=== PATIENT | female | born 1955 | race Caucasian/White ===

== ENCOUNTER → 2016-02-27 | Outpatient (CLI) | payer BC ==
--- NOTE | 2016-02-27 22:20 | MR ---
EXAMINATION TYPE: MR cervical spine wo con DATE OF EXAM: 02/27/2016 3:58 PM COMPARISON: NONE HISTORY: Cervical disc degeneration, Cervicalgia T1 sagittal and coronal, T2 sagittal, and gradient echo axial views of the cervical spine are submitt ed. The cranial cervical junction is preserved. There is no abnormal signal seen within the spinal cord or paraspinal soft tissues. At C2-3 there is moderate degenerative disc disease and left paracentral disc bulging. Bilateral unco vertebral joint hypertrophy seen greater on the left. There is mild effacement of thecal sac and mild left-sided foraminal encroachment. At C3-4 there is severe degenerative disc disease with broad-based left paracentral disc bulging capp ed by spur. Significant uncovertebral joint hypertrophy greater on the left is seen with severe bilat eral foraminal encroachment. Moderate to severe canal stenosis. There is encroachment upon the anteri or margin of the spinal cord and mild anterior compression. At C4-5 there is left paracentral disc bulging and mild uncovertebral joint hypertrophy. Mild facet a rthropathy. Mild to moderate left-sided foraminal encroachment. At C5-6 there is facet arthropathy and bilateral uncovertebral hypertrophy. No canal stenosis. Mild t o moderate bilateral foraminal encroachment. Facet arthropathy noted. At C6-7 there is severe degenerative disc disease with broad-based right paracentral disc protrusion resulting in mass effect and anterior compression of the spinal cord and significant canal stenosis. Severe right-sided foraminal encroachment. At C7-T1 there is no canal stenosis. No foraminal encroachment. No disc herniation. Mild degenerative disc disease. Sagittal disc bulging at T1-T2 and T2-T3 not included by axial imaging. IMPRESSION: 1. Severe degenerative disc disease C3-C4 and C6-C7 with broad-based disc protrusions as discussed a gavi resulting in severe canal stenosis and anterior mild compression of the spinal cord. 2. Significant foraminal encroachment at multiple levels as discussed above. Most marked findings are seen at C3-C4 greater on the left and C6-C7 on the right. EXAMINATION TYPE: MR lumbar spine wo con DATE OF EXAM: 02/27/2016 3:58 PM COMPARISON: NONE HISTORY: Cervical disc degeneration, Cervicalgia TECHNIQUE: T1 and T2 axial and sagittal images of the lumbar spine are submitted. FINDINGS: There is no abnormal signal seen within the visualized spinal cord or paraspinal soft tissu es. At T11-T12 there are severe degenerative disc disease and a sagittal disc bulge. Axial images do not include this level. T12-L1 there is no disc herniation or canal stenosis. There is bilateral facet arthropathy but no for aminal encroachment. At L1-2 there is mild to moderate degenerative disc disease with annular tear and left paracentral di sc focal broad-based protrusion. Mild anterior indentation of the thecal sac. There is facet arthropa thy. Neural foramina remain patent bilaterally At L2-3 there is mild to moderate degenerative disc disease. There is a Schmorl's node involving the superior endplate of L3. There is a broad-based right paracentral and lateral disc protrusion with mi ld right-sided foraminal encroachment. There is mild effacement of thecal sac anterolaterally on the right. Mild canal stenosis. At L3-4 there is facet arthropathy and mild degenerative disc disease. There is no disc herniation, c anal stenosis, or foraminal encroachment. At L4-5 there is marked facet arthropathy. Broad-based central disc bulging results in mild effacemen t of thecal sac. There is mild bilateral foraminal encroachment greater on the right. Borderline to m ild canal stenosis. At L5-S1 there is severe degenerative disc disease with discogenic marrow changes. There is marked fa cet arthropathy. There is a small focal central disc protrusion with mild effacement of the thecal sa c. Hypertrophic changes are seen posteriorly resulting in mild to moderate bilateral foraminal encroa chment. IMPRESSION: 1. Left paracentral disc protrusion with annular tear L1-L2 and mild effacement of thecal sac. 2. Broad-based right paracentral and lateral disc protrusion L2-L3 with effacement of thecal sac, mil d right foraminal encroachment and mild canal stenosis. 3. Multilevel degenerative disc disease and facet arthropathy with foraminal encroachment to moderate degree at L5-S1 secondary to hypertrophic changes and disc bulging. Small focal central disc protrus ion L5-S1 capped by spur with mild effacement of thecal sac. 4. The sagittal disc bulging T11-T12 with severe degenerative disc disease. No spinal cord contact. T his level was not included on axial images of the lumbar spine.
== END | disposition home or self-care (01) ==
LOC: RADMRIMAIN 14:48
PROVIDERS: ATTEND Orthopaedic Surgery Orthopaedic Surgery of the Spine
DX: M48.06 Spinal stenosis, lumbar region (principal); M99.74 Connective tissue and disc stenosis of intervertebral foramina of sacral region; M51.27 Other intervertebral disc displacement, lumbosacral region; M51.36 Other intervertebral disc degeneration, lumbar region; M46.86 Other specified inflammatory spondylopathies, lumbar region; M48.02 Spinal stenosis, cervical region; M99.71 Connective tissue and disc stenosis of intervertebral foramina of cervical region; M50.20 Other cervical disc displacement, unspecified cervical region; M50.31 Other cervical disc degeneration, high cervical region
CPT/HCPCS: 72141; 72148

== ENCOUNTER → 2016-10-05 | Outpatient (CLI) | payer BC ==
--- NOTE | 2016-10-05 15:07 | US ---
EXAMINATION TYPE: US carotid duplex BILAT DATE OF EXAM: 10/05/2016 COMPARISON: NONE CLINICAL HISTORY: A88.1 vertigo R07.89 chest pressure. EXAM MEASUREMENTS: RIGHT: Peak Systolic Velocity (PSV) cm/sec ----- Right CCA: 66.7 ----- Right ICA: 72.5 ----- Right ECA: 97.3 ICA/CCA ratio: 1.1 RIGHT: End Diastole cm/sec ----- Right CCA: 15.8 ----- Right ICA: 23.1 ----- Right ECA: 8.6 LEFT: Peak Systolic Velocity (PSV) cm/sec ----- Left CCA: 58.1 ----- Left ICA: 69.1 ----- Left ECA: 121.0 ICA/CCA ratio: 1.2 LEFT: End Diastole cm/sec ----- Left CCA: 14.4 ----- Left ICA: 27.4 ----- Left ECA: 14.4 VERTEBRALS (direction of flow): Right Vertebral: Antegrade Left Vertebral: Antegrade Mild amount of plaque visualized bilaterally. No elevated velocities. No significant stenosis. IMPRESSION: Minimal amount of silver scale plaquing without hemodynamically significant stenosis of ei ther carotid system.
--- NOTE | 2016-10-06 11:17 | ECHOF ---
Referral Reason:A88.1 vertigo R07.89 chest pressure MEASUREMENTS -------- HEIGHT: 162.6 cm WEIGHT: 101.2 kg BP: 142/67 IVSd: 1.3 cm (0.6 - 1.1) LVIDd: 4.7 cm (3.9 - 5.3) LVPWd: 1.5 cm (0.6 - 1.1) EDV(Teich): 104 ml IVSs: 1.9 cm LVIDs: 2.9 cm LVPWs: 1.7 cm %IVS Thck: 42 % ESV(Teich): 32 ml EF(Teich): 69 % %FS: 39 % SV(Teich): 72 ml LALs A4C: 4.4 cm LAAs A4C: 12.4 cm LAESV A-L A4C: 30 ml LAESV MOD A4C: 27 ml LALs A2C: 3.0 cm LAAs A2C: 8.2 cm LAESV A-L A2C: 19 ml LAESV MOD A2C: 17 ml LAESV(A-L): 29 ml LAESV Index (A-L): 14.09 ml/m Ao Diam: 3.3 cm (2.0 - 3.7) AV Cusp: 1.8 cm (1.5 - 2.6) LA Diam: 3.7 cm (2.7 - 3.8) MV EXCURSION: 17.332 mm (> 18.000) MV EF SLOPE: 89 mm/s (70 - 150) EPSS: 0.9 cm MV E Ralph: 0.53 m/s MV DecT: 245 ms MV Dec [place]: 2.2 m/s MV A Ralph: 0.76 m/s MV E/A Ratio: 0.70 MV PHT: 71 ms E/E': 10.30 E': 0.05 m/s AV Vmax: 1.03 m/s AV maxP.27 mmHg TR Vmax: 2.44 m/s TR maxP.87 mmHg RAP: 5.00 mmHg RVSP: 28.87 mmHg FINDINGS -------- Sinus rhythm. This was a technically difficult study with suboptimal views. There is mild concentric left ventricular hypertrophy. Overall left ventricular systolic function is normal with, an EF between 60 - 65 %. The RV was not well visualized. Normal LA size by volume 22+/-6 ml/m2. The right atrium was not well visualized. 1.5mg of Definity was utilized for enhancement of images Aortic valve is trileaflet and is mildly thickened. There is no evidence of aortic regurgitation. There is no evidence of aortic stenosis. The mitral valve leaflets are mildly thickened. There is trace mitral regurgitation. Trace tricuspid regurgitation present. There is no evidence of pulmonary hypertension. The right ventricular systolic pressure, as measured by Doppler, is 28.87mmHg. The pulmonic valve was not well visualized. The aortic root size is normal. Normal inferior vena cava with normal inspiratory collapse consistent with estimated right atrial pressure of 5 mmHg. The pericardium is normal. There is no pericardial effusion. CONCLUSIONS -------- 1. Sinus rhythm. 2. The mitral valve leaflets are mildly thickened. 3. There is trace mitral regurgitation. 4. Trace tricuspid regurgitation present. 5. There is no evidence of pulmonary hypertension. 6. The right ventricular systolic pressure, as measured by Doppler, is 28.87mmHg. 7. The pulmonic valve was not well visualized. 8. The aortic root size is normal. 9. There is no pericardial effusion. 10. This was a technically difficult study with suboptimal views. 11. There is mild concentric left ventricular hypertrophy. 12. Overall left ventricular systolic function is normal with, an EF between 60 - 65 %. 13. The RV was not well visualized. 14. Normal LA size by volume 22+/-6 ml/m2. 15. The right atrium was not well visualized. 16. 1.5mg of Definity was utilized for enhancement of images 17. Aortic valve is trileaflet and is mildly thickened. IRRIGATION ENGINEER: Satinder Harper RDCS
== END | disposition home or self-care (01) ==
LOC: RADECHMAIN 13:47
PROVIDERS: ATTEND Family Medicine
DX: I07.1 Rheumatic tricuspid insufficiency (principal); R07.89 Other chest pain; A88.1 Epidemic vertigo
CPT/HCPCS: 93306; 93880; Q9957

== ENCOUNTER → 2017-03-17 | Outpatient (CLI) | payer BC ==
--- NOTE | 2017-03-17 14:57 | XR ---
EXAMINATION TYPE: XR cervical spine comp DATE OF EXAM: 03/17/2017 COMPARISON: NONE HISTORY: Pain TECHNIQUE: Four views are submitted. FINDINGS: The odontoid is intact. There are no compression deformities. The prevertebral soft tissue structur es are within normal limits. Degenerative disc disease is seen at levels C2-C4 and C6-C7. Multilevel facet arthropathy. Severe foraminal encroachment C3-C4. Could not exclude a degree of retrolisthesis . Foraminal encroachment noted at all levels. IMPRESSION: 1. Bilevel degenerative disc disease with severe changes at C3-C4 and C6-C7 with multilevel facet art hropathy and foraminal encroachment. Spondylosis and retrolisthesis C3-C4 may result in canal stenosi s. Similar finding at C6-C7. Correlate clinically with MRI as warranted.
== END | disposition home or self-care (01) ==
LOC: RADXRMAIN 14:25
PROVIDERS: ATTEND Neurological Surgery
DX: M43.12 Spondylolisthesis, cervical region (principal); M50.31 Other cervical disc degeneration, high cervical region; M47.812 Spondylosis without myelopathy or radiculopathy, cervical region; M46.82 Other specified inflammatory spondylopathies, cervical region
CPT/HCPCS: 72050

== ENCOUNTER → 2017-06-25 | Outpatient (CLI) | payer BC ==
--- NOTE | 2017-06-25 08:05 | MR ---
EXAMINATION TYPE: MR cervical spine wo con DATE OF EXAM: 06/25/2017 COMPARISON: 02/27/2016 HISTORY: 61-year-old female with cervicalgia, cervical radiculopathy, bilateral arm weakness, pain, a nd numbness. TECHNIQUE: Multiplanar, multisequence images of the cervical spine were acquired. Findings: No craniocervical junction abnormality, predental space widening, or prevertebral soft tissue swellin g. Preserved alignment of the cervical spine but with redemonstrated moderate to advanced multilevel deg enerative disc disease with degenerated, desiccated, and narrowed discs. Disc osteophyte complexes ar e present at multiple levels along with a some levels of ligamentum flavum thickening. Facet and uncovertebral joint arthropathy is present throughout. No prevertebral or paravertebral soft tissue abnormality seen. At C2-C3, there is a left paracentral disc osteophyte complex similar prior. Mild facet and uncoverte bral joint degenerative change. Similar mild left neural foraminal stenosis without significant spina l canal stenosis though there is abutment of the ventral cord. At C3-C4, there is broad-based disc osteophyte complex eccentric toward the left with contiguous unco vertebral joint degenerative change as well as facet degenerative change. Ligamentum flavum thickenin g. There is a severe left and moderate to severe right neural foraminal stenosis. The overall degree of spinal canal stenosis appears slightly decreased but still with persistent moderate spinal canal s tenosis. Abutment and flattening of both the dorsal and ventral cord. No myelopathic cord signal goodwin ge. At C4-C5, small posterior disc osteophyte complex. Uncovertebral joint and facet degenerative change. This results in [id number]-[id number] left neural foraminal stenosis without significant spinal canal oswald nosis. At C5-C6, broad-based disc osteophyte complex with uncovertebral joint and facet degenerative change as well as ligamentum flavum thickening. There is similar mild spinal canal stenosis at this level wi thout cord abutment or cord flattening. Moderate right and mild left neuroforaminal stenosis. At C6-7, broad-based discussed effect complex eccentric to the right is redemonstrated with prominent abutment and flattening of the ventral cord. However, dorsal CSF signal remains and a mild spinal ca nal stenosis here may be slightly improved from 02/27/2016. Facet and uncovertebral joint arthropathy. Moderate right and mild left neuroforaminal stenosis. At C7-T1, there is ligamentum flavum thickening with facet degenerative change. Similar mild bilatera l neuroforaminal stenosis. No significant spinal canal stenosis. No myelopathic cord signal change. IMPRESSION: 1. Moderate to advanced multilevel degenerative disc disease is redemonstrated. Additional facet and uncovertebral joint arthropathy and scattered ligamentum flavum thickening. 2. Greatest changes are seen at C3-C4 where there is a moderate spinal canal stenosis though slightly improved from 02/27/2016. There is abutment and flattening of both the dorsal and ventral cord but wi thout myelopathic cord signal change. 3. Additional mild spinal canal stenosis at C6-C7 appears slightly improved as well. Disc osteophyte complex here continues to abut and indent the ventral cord. 4. Variable bilateral neural foraminal stenosis as outlined above, severe on the left and moderate to severe on the right at C3-C4.
== END | disposition home or self-care (01) ==
LOC: RADMRIMAIN 06:51
PROVIDERS: ATTEND Physical Medicine & Rehabilitation
DX: M99.71 Connective tissue and disc stenosis of intervertebral foramina of cervical region (principal); M48.02 Spinal stenosis, cervical region; M50.10 Cervical disc disorder with radiculopathy, unspecified cervical region; M46.92 Unspecified inflammatory spondylopathy, cervical region
CPT/HCPCS: 72141

== ENCOUNTER → 2017-08-03 | Outpatient (CLI) | payer BC ==
--- NOTE | 2017-08-03 14:19 | XR ---
Limited cervical spine HISTORY: Postop cervical fusion 3 views of the cervical spine correlated to previous exam dated 03/17/2017 Patient is status post anterior cervical fusion and discectomy at C3-C7. Intervertebral spacing block s are present. There is near anatomic alignment. Airway is patent. Mild prominence of the prevertebra l soft tissues is noted and may be postsurgical. Loss of disc height again noted at C2-3. Minimal ret rolisthesis C2-3, C3-4 is similar to prior exam. Multilevel facet arthropathy is noted. Odontoid view is limited. IMPRESSION: Neurosurgical follow-up as described.
== END | disposition home or self-care (01) ==
LOC: RADXRMAIN 12:56
PROVIDERS: ATTEND Neurological Surgery
DX: Z09 Encounter for follow-up examination after completed treatment for conditions other than malignant neoplasm (principal); Z98.1 Arthrodesis status; Z88.1 Allergy status to other antibiotic agents; Z88.5 Allergy status to narcotic agent
CPT/HCPCS: 72040

== ENCOUNTER → 2017-10-04 | Outpatient (CLI) | payer BC ==
--- NOTE | 2017-10-04 16:54 | XR ---
Cervical spine HISTORY: Fusion cervical spine, arthrodesis 5 views of the cervical spine and 6 images correlated to prior exam 08/03/2017 Images of the right neural foramina are suboptimal. Postop changes are again noted and stable. Odonto id view is suboptimal. No significant foraminal encroachment noted on the left. IMPRESSION: Stable postop changes.
== END | disposition home or self-care (01) ==
LOC: RADXRMAIN 13:16
PROVIDERS: ATTEND Family Medicine
DX: Z47.89 Encounter for other orthopedic aftercare (principal); Z98.1 Arthrodesis status
CPT/HCPCS: 72050

== ENCOUNTER → 2018-01-04 | Outpatient (CLI) | payer BC ==
--- NOTE | 2018-01-04 11:36 | CT ---
EXAMINATION TYPE: CT cervical spine wo con DATE OF EXAM: 01/04/2018 COMPARISON: Plain films 10/04/2017 HISTORY: 6 month follow up study post surgery. Athrodesis. CT DLP: 611.[address] of the cervical spine was performed with bone and soft tissue window settings submitted . Coronal and sagittal reconstruction is obtained. C2-3: Moderate degenerative narrowing. Posterior spondylosis. Mild effacement ventral thecal sac. Deg enerative change cervical apophyseal joints resulting in moderate left-sided foraminal encroachment. No central stenosis or xochilt disc herniation. C3-4, C4-5, C5-6, C6-7: Postsurgical changes of fusion with anterior fixation plate and screws in antionette ce. Alignment is anatomic. No evidence for recurrent or residual disease. C7-T1: Within normal limits No evidence for fracture or subluxation. Alignment is anatomic. IMPRESSION: 1. Postsurgical changes of ACDF C3-C7 as discussed above with the anatomic alignment. No evidence for recurrent disease. 2. Degenerative change at C2-3 as noted.
== END | disposition home or self-care (01) ==
LOC: RADCTMAIN 10:50
PROVIDERS: ATTEND Neurological Surgery
DX: Z47.89 Encounter for other orthopedic aftercare (principal); M47.812 Spondylosis without myelopathy or radiculopathy, cervical region; Z98.1 Arthrodesis status
CPT/HCPCS: 72125

== ENCOUNTER → 2018-03-30 | Outpatient (CLI) | payer BC ==
--- NOTE | 2018-03-30 14:06 | XR ---
EXAMINATION TYPE: XR cervical spine comp DATE OF EXAM: 03/30/2018 COMPARISON: 09/27/1717 HISTORY: Postsurgical TECHNIQUE: Four views are submitted. FINDINGS: The odontoid is intact. There are no compression deformities. The prevertebral soft tissue structur es are within normal limits. Postsurgical changes are noted and appear to be stable in alignment. Sanchez ggestion of multilevel foraminal encroachment. Multilevel facet arthropathy noted. IMPRESSION: 1. Stable postsurgical changes. Suspect multilevel foraminal encroachment with multilevel facet arthr opathy..
== END | disposition home or self-care (01) ==
LOC: RADXRMAIN 13:25
PROVIDERS: ATTEND Neurological Surgery
DX: Z47.89 Encounter for other orthopedic aftercare (principal); Z98.1 Arthrodesis status
CPT/HCPCS: 72050

== ENCOUNTER → 2018-04-27 | Outpatient (CLI) | payer BC ==
--- NOTE | 2018-04-27 13:59 | CT ---
EXAMINATION TYPE: CT abdomen pelvis wo con DATE OF EXAM: 04/27/2018 HISTORY: Left side flank pain. CT DLP: 1161.9 mGycm. Automated Exposure Control for Dose Reduction was Utilized. TECHNIQUE: CT scan of the abdomen and pelvis is performed without oral or IV contrast. COMPARISON: NONE FINDINGS: Within the limitations of a non-contrast study, the following observations are made. LUNG BASES: No significant abnormality is appreciated. LIVER/GB: Liver is diffusely low dense consistent with fatty infiltration. PANCREAS: No significant abnormality is seen. SPLEEN: No significant abnormality is seen. ADRENALS: No significant abnormality is seen. KIDNEYS: Single 2 mm calculus identified right kidney mid pole level axial image 63. No left-sided re nal calculi are seen. No hydronephrosis or obstructing ureter calculi are identified bilaterally. Sin gle 3 mm left pelvic phleboliths noted axial image 132 BOWEL: Evaluation bowel slightly suboptimal secondary to lack of enteric contrast. No suspicious smal l or large bowel dilatation is seen. Some diverticula in the sigmoid colon are present. No CT evidenc e for acute diverticulitis. GENITAL ORGANS: Anteverted uterus is identified. Both ovaries identified near axial image 106 and are normal in size. LYMPH NODES: No greater than 1cm abdominal or pelvic lymph nodes are appreciated. OSSEOUS STRUCTURES: Multilevel facet arthropathy in the lower lumbar spine is present. There is mild multilevel spurring in the thoracolumbar spine. There is mild to moderate disc space narrowing with v acuum disc phenomenon at L4-L5 and L5-S1 levels. There is moderate axial joint space loss in both hip s. Dextroconvex scoliosis centered L2 level is present. OTHER: No significant additional abnormality is seen. IMPRESSION: Single 2 mm nonobstructing calculus right kidney. No hydronephrosis or obstructing ureter calculi bilaterally. Sigmoid colonic diverticulosis without CT evidence for acute diverticulitis. No suspicious acute findings seen to account for patient's symptoms of left-sided flank pain.
== END | disposition home or self-care (01) ==
LOC: RADCTMAIN 13:16
PROVIDERS: ATTEND Family Medicine
DX: N20.0 Calculus of kidney (principal); K57.30 Diverticulosis of large intestine without perforation or abscess without bleeding
CPT/HCPCS: 74176

== ENCOUNTER → 2018-05-09 | Outpatient (CLI) | payer BC ==
--- NOTE | 2018-05-09 10:51 | XR ---
EXAMINATION TYPE: XR IVP DATE OF EXAM: 05/09/2018 COMPARISON: CT abdomen pelvis 04/27/2017 HISTORY: Urinary calculus, left flank pain TECHNIQUE: Following intravenous administration of 100 cc Isovue-370, 8 images are obtained. The preliminary film of the abdomen reveals no significant abnormality. No definite nephrolithiasis i s seen. There is mild spinal curvature. Phlebolith present in the left hemipelvis. Following intravenous administration of contrast material, sequential films of the abdomen were obtai jasen. There is prompt and symmetrical excretion of the contrast by both kidneys which demonstrate nor mal size and configuration. The collecting systems and visualized portions of the ureters reveal no abnormality, mild blunting of the calyces on the right thought likely due to applied extrinsic compre ssion. Ureters show normal course and caliber. Slight impression along the proximal left ureter does not persist and is thought to possibly due to overlying vascular impression. There is no mass or obs truction visualized. There is gradual accumulation of contrast material in the urinary bladder showi ng no gross abnormality, there is not distention of the bladder. The post-voiding film shows minimal residual contrast in the collecting systems and urinary bladder. IMPRESSION: Essentially normal IVP , no significant finding is seen to account for patient's clinical symptoms
== END | disposition home or self-care (01) ==
LOC: RADFLMAIN 08:42
PROVIDERS: ATTEND Urology
DX: R10.9 Unspecified abdominal pain (principal); Z88.5 Allergy status to narcotic agent
CPT/HCPCS: 74400; Q9967

== ENCOUNTER → 2018-06-29 | Outpatient (CLI) | payer BC ==
--- NOTE | 2018-06-29 13:55 | XR ---
EXAMINATION TYPE: XR cervical spine comp DATE OF EXAM: 06/29/2018 COMPARISON: 03/30/2018 HISTORY: Postoperative fusion TECHNIQUE: Four views are submitted. FINDINGS: The odontoid is intact. There are no compression deformities. The prevertebral soft tissue structur es are within normal limits. Postsurgical changes stable appearance. There remains a slight retrolis thesis of C3 relative to C4 which is stable relative to the prior exam. Multilevel facet arthropathy noted. Diffuse osteopenia noted. There is foraminal encroachment bilaterally at C3-4 and C6-C7. IMPRESSION: 1. Postsurgical changes with multilevel foraminal encroachment. Question posterior spondylosis or a r etrolisthesis of C3 on C4 which appears stable relative to the prior exam.
== END | disposition home or self-care (01) ==
LOC: RADXRMAIN 13:26
PROVIDERS: ATTEND Neurological Surgery
DX: Z47.89 Encounter for other orthopedic aftercare (principal); Z98.1 Arthrodesis status
CPT/HCPCS: 72050

== ENCOUNTER → 2018-07-15 | Outpatient (CLI) | payer BC ==
--- NOTE | 2018-07-15 08:28 | FL ---
EXAMINATION TYPE: FL barium swallow DATE OF EXAM: 07/15/2018 CLINICAL HISTORY: Dysphagia TECHNIQUE: A double contrast esophagram is performed utilizing air and barium. A total of 1 minut e 33 seconds of fluoroscopic time was utilized during procedure. 24 fluoroscopic images were saved COMPARISON: None FINDINGS: The esophagus shows normal motility and emptying into the stomach. On image 18/24 there is evidence of a cricopharyngeal bar. The anterior cervical fusion device does not play significant mass effect on the posterior esophagus. There are small thoracic osteophytes that create minimal impressi on on the posterior esophagus. Small hiatal hernia is seen. No stricture is identified. Mild degree g astroesophageal reflux was seen during real time performance of this study. IMPRESSION: 1. Evidence of a cricopharyngeal bar. 2. Cervical fusion device is present although this abuts the esophagus this does not create significa nt mass effect on the esophagus. 3. Small thoracic osteophytes creating minimal impression on the posterior esophagus.
--- NOTE | 2018-07-15 10:30 | CT ---
EXAMINATION TYPE: CT soft tissue neck w con DATE OF EXAM: 07/15/2018 7:48 AM COMPARISON: Cervical spine 06/29/2018 HISTORY: Dysphagia, Hoarseness, difficulty swallowing CT DLP: 664.3 mGycm Automated exposure control for dose reduction was used. CONTRAST: CT scan of the neck is performed following with IV Contrast, patient injected with 100 mL of Isovue 3 00. Axial images are obtained, coronal and sagittal reformatted images are reviewed. FINDINGS: Patient is status post anterior cervical fusion and discectomy at C3-C7, there are interver tebral spacing blocks. Artifact is present. There are facet arthropathy changes, multilevel foraminal encroachment. 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 Airway: No gross abnormality seen. Parotid/submandibular glands: No gross abnormality seen. Carotid/Vascular Structures: Patent, no stenosis internal carotid artery bilaterally Osseous Structures: Postop changes, degenerative disc disease. Other: No evident adenopathy. Lung apices are unremarkable. IMPRESSION: Postoperative changes.
== END | disposition home or self-care (01) ==
LOC: RADCTMAIN 06:55
PROVIDERS: ATTEND Otolaryngology
DX: M25.78 Osteophyte, vertebrae (principal); R93.3 Abnormal findings on diagnostic imaging of other parts of digestive tract; Z98.1 Arthrodesis status
CPT/HCPCS: 74220; 70491; Q9967

== ENCOUNTER → 2018-09-22 | Outpatient (CLI) | payer BC ==
[~2018-09-22] MED LIST: REGADENOSON 0.4 MG/5 ML SYRINGE IV ONE
--- NOTE | 2018-09-22 11:45 | NM ---
EXAMINATION TYPE: NM stress lexiscan cardiolite DATE OF EXAM: 09/22/2018 COMPARISON: NONE HISTORY: Chest pain TECHNIQUE: After the intravenous administration of 10.8 mCi Tc 99m Sestamibi - Cardiolite resting SP ECT images acquired 45 minutes post injection. The patient received 0.4mg Lexiscan, 29.0 mCi Tc 99m Sestamibi - Stress images obtained [address] injection FINDINGS: Review of stress and rest SPECT images demonstrates reduced uptake and stress images within the anter ior wall. Gated analysis shows normal wall motion with an estimated left ventricular ejection fracti on of 64 %. IMPRESSION: 1. There is reduced uptake stress images within the anterior wall relative to rest images which may b e artifactual rather than representing stress-induced reversible ischemia. Correlate clinically.
--- NOTE | 2018-09-22 12:10 | EST ---
EXERCISE STRESS AGE: 63 SEX: F HT: 5'4" WT: 223 PROTOCOL: Lexiscan Cardiolite Stress Test HEART RATE REST: 60 BLOOD PRESSURE REST: 139/75 MAXIMUM HEART RATE ACHIEVED: 110 MAXIMUM BLOOD PRESSURE: 155/67 INDICATIONS: Chest pain. CLINICAL INFORMATION: Baseline heart rate 60 beats per minute. Baseline blood pressure 139/75 mmHg. Baseline 12-lead ECG shows normal sinus rhythm with normal cardiac intervals. Patient received Lexiscan infusion per protocol. There was no definite evidence for ischemia. No arrhythmias were noted. Nuclear portion of the stress test will be reported separately. MMODL / IJN: [id number] /
== END | disposition home or self-care (01) ==
LOC: RADNMMAIN 08:01
PROVIDERS: ATTEND Family Medicine
DX: R07.9 Chest pain, unspecified (principal)
CPT/HCPCS: 78452; 93017

== ENCOUNTER → 2019-01-03 | Outpatient (CLI) | payer BC ==
--- NOTE | 2019-01-03 16:15 | XR ---
Cervical spine HISTORY: Arthrodesis, pain 5 views of the cervical spine correlated to prior cervical spine dated 06/29/2018 Postop changes show a stable appearance. Foraminal encroachment is stable at C3-4 bilaterally, right side C6-7. Spondylosis and disc height loss at C2-3 is again noted. Intervertebral spacing blocks are again noted at C3-4, C4-5, C5-6 and C6-7, patient is status post anterior cervical fusion and discec evelin. Multilevel facet arthropathy changes present. Alignment is unchanged. IMPRESSION: Stable postoperative findings. Degenerative disc disease, facet arthropathy, foraminal en croachment.
== END | disposition home or self-care (01) ==
LOC: RADXRMAIN 13:20
PROVIDERS: ATTEND Neurological Surgery
DX: Z47.89 Encounter for other orthopedic aftercare (principal); M50.30 Other cervical disc degeneration, unspecified cervical region; M46.92 Unspecified inflammatory spondylopathy, cervical region; Z98.1 Arthrodesis status
CPT/HCPCS: 72050

== ENCOUNTER → 2019-01-07 | Outpatient (CLI) | payer BC ==
--- NOTE | 2019-01-07 11:35 | MR ---
EXAMINATION TYPE: MR brain wo/w con DATE OF EXAM: 01/07/2019 COMPARISON: Outside brain MRI April 15, 2017 HISTORY: Headache TECHNIQUE: Multiplanar, multisequence images of the brain and brainstem is performed without and with IV contras t, utilizing 10 mL intravenous Gadavist . FINDINGS: Diffusion weighted images demonstrate no evidence of a recent infarct or other diffusion ab normality. There is no worrisome extra-axial fluid collection. Mild ventricular and sulcal prominenc e is redemonstrated. A few scattered small foci of T2 intensity throughout the white matter again see n with confluent appearance bilateral frontal horns redemonstrated. No significant change from prior outside MRI. Midline structures demonstrate normal morphology. The craniocervical junction appears within normal limits. Post contrast images demonstrate no abnormal enhancement. The dural venous sinuses appear pa tent. Stable tiny mucous retention cyst or polyp left maxillary sinus axial image 6. Remainder parana chrsitian sinuses remain clear. The globes are intact. IMPRESSION: Stable mild diffuse age-related cerebral atrophy and chronic small vessel ischemic change s. No significant change from prior MRI.
== END | disposition home or self-care (01) ==
LOC: RADMRIMAIN 10:13
PROVIDERS: ATTEND Family Medicine
DX: G31.1 Senile degeneration of brain, not elsewhere classified (principal); I67.82 Cerebral ischemia
CPT/HCPCS: 70553

== ENCOUNTER 2020-01-03 10:02 | Observation (INO) | payer BC ==
[2020-01-03] MEDS ORDERED: SODIUM CHLORIDE 0.9% 1,000 ML IV STA ×2 (10:30)
[2020-01-03] MEDS ORDERED: ASPIRIN 81 MG PO STA (10:30)
[2020-01-03] MEDS ORDERED: LABETALOL SYRINGE 5 MG/ML IVP STA (10:31)
--- NOTE | 2020-01-03 10:38 | ED ---
General Adult HPI - General Source: patient, RN notes reviewed, old records reviewed Mode of arrival: ambulatory Limitations: no limitations <Radha Kern - Last Filed: 01/03/20 14:06> <Kristi Ferrer - Last Filed: 01/11/20 09:04> - General Chief complaint: Recheck/Abnormal Lab/Rx Stated complaint: High BP Time Seen by Provider: 01/03/20 10:18 - History of Present Illness Initial comments: This patient's a 64-year-old female presenting to the emergency department today with concerns for headache and high blood pressure. She reports her blood pressures at home or 220/100. She called her primary care doctor who told her come to the ER. Patient states that she also noted she had some chest pain and some jaw discomfort today. She reports that she's had a and stress test done over a year ago. She denies any known history of coronary disease or heart problems. Patient states that she's been taking the metoprolol and losartan. She states that she is having frequent migraines as well and she was related to her elevated blood pressure. She denies any nausea or vomiting or fevers or chills or shortness of breath. (Radha Kern) - Related Data Home Medications Medication Instructions Recorded Confirmed Aspirin 162 mg PO DAILY@1800 12/12/14 01/03/20 Montelukast [Singulair] 10 mg PO DAILY PRN 12/12/14 01/03/20 raNITIdine HCL [Ranitidine HCl] 300 mg PO BID PRN 12/12/14 01/03/20 Albuterol Sulfate [Ventolin HFA] 1 puff INHALATION RT-Q6H PRN 01/03/20 01/03/20 Ascorbic Acid [Vitamin C] 1,000 mg PO DAILY@0400 01/03/20 01/03/20 Cats Claw Bark 500 mg PO DAILY 01/03/20 01/03/20 Cetirizine HCl [Zyrtec] 10 mg PO DAILY@1800 01/03/20 01/03/20 Echinacea 500 mg PO DAILY 01/03/20 01/03/20 Ergocalciferol [Vitamin D2 50,000 unit PO MO 01/03/20 01/03/20 (DRISDOL)] Etodolac 500 mg PO TID PRN 01/03/20 01/03/20 Garlic 2 tab PO DAILY@0900 01/03/20 01/03/20 Ipratropium [place] 0.06%Nasal 1 spray EA NOSTRIL HS 01/03/20 01/03/20 [Atrovent Nasal 0.06%] Losartan Potassium [Cozaar] 100 mg PO DAILY PRN 01/03/20 01/03/20 Lysine [l-Lysine] 1,000 mg PO DAILY 01/03/20 01/03/20 Methylphenidate HCl [Concerta] 54 mg PO DAILY 01/03/20 01/03/20 Multivit-Min/FA/Lycopen/Lutein 1 tab PO DAILY@0400 01/03/20 01/03/20 [Centrum Silver Tablet] Nizatidine [Axid] 300 mg PO DAILY PRN 01/03/20 01/03/20 RABEprazole SODIUM [Aciphex] 20 mg PO BID PRN 01/03/20 01/03/20 Ubidecarenone [Co Q-10] 400 mg PO DAILY@0400 01/03/20 01/03/20 Previous Rx's Medication Instructions Recorded Metoprolol Tartrate [Lopressor] 50 mg PO BID #60 tab 01/04/20 amLODIPine [Norvasc] 10 mg PO DAILY #30 tab 01/04/20 hydroCHLOROthiazide [Hydrodiuril] 25 mg PO DAILY #30 tab 01/04/20 Allergies Allergy/AdvReac Type Severity Reaction Status Date / Time codeine Allergy Rash/Hives/ Verified 01/03/20 12:51 ITCHING neomycin Allergy Swelling Verified 01/03/20 12:51 Review of Systems ROS Other: All systems not noted in ROS Statement are negative. <Radha Kern - Last Filed: 01/03/20 14:06> ROS Other: All systems not noted in ROS Statement are negative. <Kristi Ferrer - Last Filed: 01/11/20 09:04> ROS Statement: Those systems with pertinent positive or pertinent negative responses have been documented in the HPI. Past Medical History Past Medical History: Asthma, Chest Pain / Angina, GERD/Reflux, Hypertension, Sleep Apnea/CPAP/BIPAP Additional Past Medical History / Comment(s): ALLERGIES, CURRENT SCRATCHES FROM PUPPY History of Any Multi-Drug Resistant Organisms: None Reported Past Surgical History: Orthopedic Surgery Additional Past Surgical History / Comment(s): LEFT ANKLE ORIF, LEFT KNEE SX, BENIGN BREAST BX, spinal fusion, Additional Past Anesthesia/Blood Transfusion Reaction / Comment(s): PATIENT STATES PERSONALITY CHANGES POST OP Past Psychological History: ADD/ADHD Past Alcohol Use History: Rare Past Drug Use History: None Reported <ConchaRadha - Last Filed: 01/03/20 14:06> General Exam Limitations: no limitations General appearance: alert Head exam: Present: atraumatic, normocephalic, normal inspection Eye exam: Present: normal appearance, PERRL, EOMI. Absent: scleral icterus, conjunctival injection, periorbital swelling ENT exam: Present: normal exam, mucous membranes moist Neck exam: Present: normal inspection. Absent: tenderness, meningismus, lymphadenopathy Respiratory exam: Present: normal lung sounds bilaterally. Absent: respiratory distress, wheezes, rales, rhonchi, stridor Cardiovascular Exam: Present: regular rate, normal rhythm, normal heart sounds. Absent: systolic murmur, diastolic murmur, rubs, gallop, clicks GI/Abdominal exam: Present: soft, normal bowel sounds. Absent: distended, tenderness, guarding, rebound, rigid Extremities exam: Present: normal inspection Back exam: Present: normal inspection Neurological exam: Present: alert, oriented X3, CN II-XII intact Psychiatric exam: Present: normal affect, normal mood Skin exam: Present: warm, dry, intact, normal color. Absent: rash <ConchaRadha - Last Filed: 01/03/20 14:06> - General Exam Comments Initial Comments: 64-year-old female. Alert and oriented 3. No significant distress. (Radha Kern) Course Vital Signs 01/03/20 01/03/20 01/03/20 10:05 10:30 11:05 Temperature 98.1 F Pulse Rate 82 Respiratory 18 Rate Blood Pressure 195/95 162/85 149/74 O2 Sat by Pulse 99 Oximetry 01/03/20 01/03/20 01/03/20 11:30 12:47 13:43 Temperature Pulse Rate 67 66 72 Respiratory 18 16 17 Rate Blood Pressure 127/69 162/87 158/80 O2 Sat by Pulse 99 99 Oximetry 01/03/20 16:45 Temperature Pulse Rate 73 Respiratory 18 Rate Blood Pressure 133/76 O2 Sat by Pulse 98 Oximetry EKG Findings - EKG Comments: EKG Findings:: EKG performed that 1042 normal sinus rhythm normal EKG. Ventricular rate of 64 bpm. : 60 ms. QS duration is 76 no seconds. QT QTc is 46/418 ms. <Radha Kern - Last Filed: 01/03/20 14:06> Medical Decision Making - Lab Data Result diagrams: 01/03/20 11:11 01/03/20 11:11 - Radiology Data Radiology results: report reviewed <Radha Kern - Last Filed: 01/03/20 14:06> - Lab Data Result diagrams: 01/04/20 07:49 01/04/20 07:49 <Kristi Ferrer - Last Filed: 01/11/20 09:04> - Medical Decision Making 64-year-old female presents to the emergency department today for concerning hypertensive emergency complaining of a headache and elevated blood pressures 200/100 home. She reports even high for the past week and longer. She's been taking metoprolol and losartan. She will her PCP told her to come to the ER. At this time Patient has no acute neurological deficits. Her initial blood pressure is 195/90. Patient was given 10 mg of labetalol. She also mentioned that she was having some chest discomfort. EKG and troponin were negative. Patient's last flexor can stress test was done over a year ago. I discussed to admit the Patient at this time with Dr. Devi. Discussed the case with Dr. Berman. Roy the Patient for hypertensive emergency and chest pain. (Radha Kern) I was available for consultation in the emergency department. The history and physical exam were done by the midlevel provider. I was consulted for this patients care. I reviewed the case with the midlevel provider and based on their presentation of the patient, I agree with the assessment, medical decision making and plan of care as documented. Chart was dictated using [employer] dictation software. Attempts were made to correct any dictation errors however some typographical errors may persist. Patient seen during the Covid-19 pandemic. (Kristi Ferrer) - Lab Data Lab Results 01/03/20 01/03/20 01/03/20 Range/Units 11:11 11:11 11:11 WBC 5.2 (3.8-10.6) k/uL RBC 4.42 (3.80-5.40) m/uL Hgb 13.5 (11.4-16.0) gm/dL Hct 39.8 (34.0-46.0) % MCV 90.0 (80.0-100.0) fL MCH 30.6 (25.0-35.0) pg MCHC 34.0 (31.0-37.0) g/dL RDW 13.1 (11.5-15.5) % Plt Count 288 (150-450) k/uL MPV 6.8 Neutrophils % 56 % Lymphocytes % 31 % Monocytes % 7 % Eosinophils % 3 % Basophils % 1 % Neutrophils # 2.9 (1.3-7.7) k/uL Lymphocytes # 1.6 (1.0-4.8) k/uL Monocytes # 0.4 (0-1.0) k/uL Eosinophils # 0.1 (0-0.7) k/uL Basophils # 0.1 (0-0.2) k/uL PT 10.0 (9.0-12.0) sec INR 1.0 (<1.2) APTT 24.2 (22.0-30.0) sec Sodium 139 (137-145) mmol/L Potassium 4.1 (3.5-5.1) mmol/L Chloride 108 H (98-107) mmol/L Carbon Dioxide 22 (22-30) mmol/L Anion Gap 9 mmol/L BUN 17 (7-17) mg/dL Creatinine 0.71 (0.52-1.04) mg/dL Est GFR (CKD-EPI)AfAm >90 (>60 ml/min/1.73 sqM) Est GFR (CKD-EPI)NonAf >90 (>60 ml/min/1.73 sqM) Glucose 96 (74-99) mg/dL Calcium 9.4 (8.4-10.2) mg/dL Magnesium 1.9 (1.6-2.3) mg/dL Total Bilirubin 0.6 (0.2-1.3) mg/dL AST 25 (14-36) U/L ALT 16 (4-34) U/L Alkaline Phosphatase 70 (38-126) U/L Troponin I (0.000-0.034) ng/mL NT-Pro-B Natriuret Pep pg/mL Total Protein 6.8 (6.3-8.2) g/dL Albumin 3.9 (3.5-5.0) g/dL 01/03/20 01/03/20 Range/Units 11:11 11:11 WBC (3.8-10.6) k/uL RBC (3.80-5.40) m/uL Hgb (11.4-16.0) gm/dL Hct (34.0-46.0) % MCV (80.0-100.0) fL MCH (25.0-35.0) pg MCHC (31.0-37.0) g/dL RDW (11.5-15.5) % Plt Count (150-450) k/uL MPV Neutrophils % % Lymphocytes % % Monocytes % % Eosinophils % % Basophils % % Neutrophils # (1.3-7.7) k/uL Lymphocytes # (1.0-4.8) k/uL Monocytes # (0-1.0) k/uL Eosinophils # (0-0.7) k/uL Basophils # (0-0.2) k/uL PT (9.0-12.0) sec INR (<1.2) APTT (22.0-30.0) sec Sodium (137-145) mmol/L Potassium (3.5-5.1) mmol/L Chloride (98-107) mmol/L Carbon Dioxide (22-30) mmol/L Anion Gap mmol/L BUN (7-17) mg/dL Creatinine (0.52-1.04) mg/dL Est GFR (CKD-EPI)AfAm (>60 ml/min/1.73 sqM) Est GFR (CKD-EPI)NonAf (>60 ml/min/1.73 sqM) Glucose (74-99) mg/dL Calcium (8.4-10.2) mg/dL Magnesium (1.6-2.3) mg/dL Total Bilirubin (0.2-1.3) mg/dL AST (14-36) U/L ALT (4-34) U/L Alkaline Phosphatase (38-126) U/L Troponin I <0.012 (0.000-0.034) ng/mL NT-Pro-B Natriuret Pep 107 pg/mL Total Protein (6.3-8.2) g/dL Albumin (3.5-5.0) g/dL - Radiology Data No evidence for cardiopulmonary disease on chest x-ray. ET tube the brain shows no acute hemorrhage and midline shift. Mild diffuse cervical atrophy and chronic small vessel ischemic change redemonstrated. No aneurysmal change of the [place]. (Radha Kern) Disposition Is patient prescribed a controlled substance at d/c from ED?: No Time of Disposition: 14:09 <Radha Kern - Last Filed: 01/03/20 14:06> <Kristi Ferrer - Last Filed: 01/11/20 09:04> Clinical Impression: Chest pain, Hypertensive urgency, Headache Disposition: ADMITTED IP TO THIS HOSP Condition: Stable
[2020-01-03 11:23] LABS: Basophils # (A) 0.1 k/uL (0-0.2); Basophils % (A) 1 %; Eosinophils # (A) 0.1 k/uL (0-0.7); Eosinophils % (A) 3 %; HCT 39.8 % (34.0-46.0); HGB 13.5 gm/dL (11.4-16.0); Lymphocytes # (A) 1.6 k/uL (1.0-4.8); Lymphocytes % (A) 31 %; MCH 30.6 pg (25.0-35.0); Mean Platelet Volume 6.8; Monocytes # (A) 0.4 k/uL (0-1.0); Monocytes % (A) 7 %; Neutrophils # (A) 2.9 k/uL (1.3-7.7); Neutrophils % (A) 56 %; Platelet Count 288 k/uL (150-450); RBC 4.42 m/uL (3.80-5.40); RDW 13.1 % (11.5-15.5); WBC 5.2 k/uL (3.8-10.6)
[2020-01-03 11:35] LABS: ALT 16 U/L (4-34); AST 25 U/L (14-36); African American GFR (CKD) >90 (>60 ml/min/1.73 sqM); Albumin 3.9 g/dL (3.5-5.0); Alkaline Phosphatase 70 U/L (38-126); Anion Gap 9 mmol/L; Blood Urea Nitrogen 17 mg/dL (7-17); Calcium 9.4 mg/dL (8.4-10.2); Carbon Dioxide 22 mmol/L (22-30); Chloride 108 mmol/L (98-107); Glucose 96 mg/dL (74-99); Magnesium 1.9 mg/dL (1.6-2.3); Non-African American GFR(CKD) >90 (>60 ml/min/1.73 sqM); Potassium 4.1 mmol/L (3.5-5.1); Sodium 139 mmol/L (137-145); Total Bilirubin 0.6 mg/dL (0.2-1.3); Total Protein 6.8 g/dL (6.3-8.2)
[2020-01-03 11:36] LABS: Partial Thromboplastin Time 24.2 sec (22.0-30.0)
--- NOTE | 2020-01-03 11:36 | XR ---
EXAMINATION TYPE: XR chest 2V DATE OF EXAM: 01/03/2020 COMPARISON: 01/03/2020 HISTORY: Shortness of breath TECHNIQUE: Frontal and lateral views of the chest are obtained. FINDINGS: Scattered senescent parenchymal changes noted. Hyperinflation compatible with COPD. No evidence for infiltrate. No evidence for atelectasis. Heart size is stable. Mediastinal structures are stable and grossly unremarkable. No evidence for hilar prominence. Degenerative changes dorsal spine. IMPRESSION: 1. No evidence for acute pulmonary disease.
[2020-01-03] MEDS ORDERED: KETOROLAC 15 MG/ML 1 ML VIAL IVP STA (11:38)
--- NOTE | 2020-01-03 13:31 | CT ---
EXAMINATION TYPE: CT brain wo con DATE OF EXAM: 01/03/2020 HISTORY: headache, hypertension CT DLP: 1186 mGycm. Automated Exposure Control for Dose Reduction was Utilized. TECHNIQUE: CT scan of the head is performed without contrast. COMPARISON: MRI brain dated 01/07/2019. FINDINGS: There is no acute intracranial hemorrhage or midline shift identified. There is diffuse v entricular and sulcal prominence consistent with diffuse age-related cerebral atrophy. There is low- attenuation in the periventricular white matter consistent with chronic small vessel ischemic change. The globes are intact and the visualized sinuses are clear. IMPRESSION: No acute intracranial hemorrhage or midline shift. There is mild diffuse cerebral atrop hy and chronic small vessel ischemic change redemonstrated.
--- NOTE | 2020-01-03 13:43 | CT ---
EXAMINATION TYPE: CT angio COW [place] DATE OF EXAM: 01/03/2020 1:28 PM COMPARISON: Same day CT brain study. HISTORY: headache, hypertension CT DLP: 1123 mGycm Automated exposure control for dose reduction was used. TECHNIQUE: Performed with IV Contrast, patient injected with 100 mL of Isovue 370. 3D reconstructed images are created on an independent workstation and reviewed.. FINDINGS: Codominant vertebrobasilar system. Vertebral arteries patent to basilar junction. Patent bilateral po sterior communicating arteries. No significant focal stenosis or aneurysmal change in the posterior c irculation. Images of the anterior circulation show patent anterior communicating artery. There is no significant focal stenosis or aneurysmal change. IMPRESSION: No aneurysmal change at the level of the [place].
[2020-01-03] MEDS ORDERED: ACETAMINOPHEN TAB 325 MG TAB PO PRN (14:11)
[2020-01-03] MEDS ORDERED: MORPHINE SULFATE 4 MG/ML SYRINGE IV PRN (14:11)
[2020-01-03] MEDS ORDERED: ONDANSETRON 4 MG/2 ML VIAL IVP PRN (14:11)
[2020-01-03] MEDS ORDERED: NALOXONE 0.4 MG/ML 1 ML VIAL IV PRN (14:11)
[2020-01-03] MEDS ORDERED: KETOROLAC 15 MG/ML 1 ML VIAL IVP PRN (14:11)
[2020-01-03] MEDS ORDERED: IBUPROFEN 400 MG TAB PO PRN (14:11)
[2020-01-03] MEDS ORDERED: SODIUM CHLORIDE 0.9% 1,000 ML IV SCH (14:15)
[2020-01-03] MEDS: BUTALB/APAP/CAFF 50-325-40MG TAB PO PRN (18:42)
[2020-01-03] MEDS ORDERED: ALBUTEROL NEBULIZED 2.5 MG/3 ML INHALATION PRN (18:45)
[2020-01-03] MEDS ORDERED: MONTELUKAST 10 MG TAB PO PRN (18:45)
[2020-01-03] MEDS ORDERED: FAMOTIDINE 20 MG TAB PO PRN (18:45)
[2020-01-03] MEDS ORDERED: ETODOLAC 200 MG CAPSULE PO PRN (18:45)
[2020-01-03] MEDS ORDERED: LOSARTAN 50 MG TAB PO PRN (18:45)
[2020-01-03] MEDS ORDERED: NIZATIDINE 150 MG PO PRN (18:45)
[2020-01-03] MEDS ORDERED: PANTOPRAZOLE 40 MG TABLET PO PRN (18:45)
[2020-01-03] MEDS ORDERED: TEMAZEPAM 15 MG CAP PO PRN (18:46)
[2020-01-03] MEDS ORDERED: ALPRAZolam 0.25 MG TAB PO PRN (18:46)
[2020-01-03] MEDS ORDERED: cloNIDine HCL 0.1 MG TAB PO PRN (18:50)
--- NOTE | 2020-01-03 20:13 | HP ---
HISTORY AND PHYSICAL I am covering for Dr. Mueller. DATE OF SERVICE: 01/03/2020 CHIEF COMPLAINTS: Headache and high blood pressure. HISTORY OF PRESENT ILLNESS: This 64-year-old woman with a past medical history of multiple medical problems, including history of asthma, history of GERD, hypertension, history of sleep apnea, history of migraine, being followed by Dr. Mueller in the outpatient setting, was complaining of severe headache. This morning her blood pressure was found to be 223/116 as an outpatient and the patient came to [facility]. Patient also started to have a headache which was felt in both alevism and vertex. The patient had previous migraine episodes which were responding to [id number] medications, but this headache did not respond, and the patient came to [facility]. With multiple doses of labetalol and other medications, blood pressure is being closely monitored. There is no history of any fever or rigors. No history of loss of consciousness or seizures at this time. The patient did have extensive evaluation, including brain CT and other evaluations, which were personally reviewed by me. They showed mild diffuse cerebral atrophy; otherwise no significant changes. Cardiology evaluation is in progress. The CT angio showed no aneurysmal changes in the [place]. EKG was noted. There is no history of fever, rigor or chills. PAST MEDICAL HISTORY: History of asthma, history of GERD, hypertension, sleep apnea. HOME MEDICATIONS: Garlic, Atrovent, lysine, Echinacea, ascorbic acid, Zyrtec, AcipHex, multivitamins, Ventolin, vitamin D2, metoprolol, Concerta, etodolac, Singulair, Cozaar, ranitidine, aspirin. ALLERGIES: CODEINE and NEOMYCIN. FAMILY HISTORY: No history of heart disease or strokes in the family. SOCIAL HISTORY: No history of smoking. No history of alcohol intake. REVIEW OF SYSTEMS: ENT: As mentioned earlier. CARDIOVASCULAR SYSTEM: As mentioned earlier. RESPIRATORY SYSTEM: No cough, hemoptysis. GI: No nausea, vomiting, diarrhea. : No dysuria or retention. NERVOUS SYSTEM: No numbness, weakness. ALLERGY/IMMUNOLOGY: No asthma, hayfever. MUSCULOSKELETAL: As mentioned earlier. HEMATOLOGY/ONCOLOGY: No history of anemia. ENDOCRINE: No history of diabetes, hypothyroidism. CONSTITUTIONAL: As mentioned earlier. DERMATOLOGY: Negative. RHEUMATOLOGY: Negative. PSYCHIATRY: As mentioned earlier. PHYSICAL EXAMINATION: Patient is alert and oriented x3. Pulse 76, blood pressure 178/84, respiration 16, temperature 98.3, pulse ox 97% on room air. HEENT: Conjunctivae normal. NECK: No jugular venous distention. CARDIOVASCULAR SYSTEM: S1, S2 muffled. RESPIRATORY SYSTEM: Breath sounds diminished at the bases. No rhonchi. No crackles. ABDOMEN: Soft, non-tender. No mass palpable. LEGS: No edema. No swelling. NERVOUS SYSTEM: Higher functions as mentioned earlier. Moves all 4 limbs. No focal motor or sensory deficit. LYMPHATICS: No lymph node palpable in neck, axillae or groin. SKIN: No ulcer, rash, bleeding. JOINTS: No active deforming arthropathy. LABS/IMAGING: Labs at this time show CBC within normal limits. Chloride is 108. EKG noted. CT scan and chest x-ray reviewed. ASSESSMENT: 1. Accelerated hypertension, hypertensive urgency. 2. Severe headache, possibly acute migrainous episode. 3. History of asthma. 4. History of gastroesophageal reflux disease. 5. Hypertension. 6. History of sleep apnea. 7. History of degenerative joint disease. 8. History of attention deficit disorder, attention deficit hyperactivity disorder. 9. Obesity with a body mass index of 38.3. 10.FULL CODE. RECOMMENDATIONS AND DISCUSSION: In this 64-year-old woman who presented with multiple complex medical issues, we will monitor the patient closely, continue the current medication. I would recommend continuing with p.r.n. clonidine at this time. Otherwise, I would recommend increasing the dose of metoprolol to 50 mg twice daily and add Norvasc to the current regimen. We will follow the patient closely. Stop the IV fluids. Otherwise, cardiology consultation. The troponins are negative. Prognosis is guarded because of multiple complex medical issues. Discussed with the patient, who understands and agrees. Further recommendations to follow. A copy of this dictation is being forwarded to Dr. Mueller, who is the primary physician. MMODL / KAYEN: [id number] / MTDD
[2020-01-03] MEDS: METOPROLOL TARTRATE 50 MG TAB PO SCH (20:27)
[2020-01-03] MEDS: amLODIPine 10 MG TAB PO SCH (20:27)
[2020-01-03] MEDS ORDERED: IPRATROPIUM BROMIDE 0.06% NASAL SPRAY (15 ML) EA NOSTRIL SCH (21:00)
[2020-01-03 23:08] VITALS: RESP 18
[2020-01-03 23:35] LABS: Appearance,Urine Clear (Clear); Bilirubin,Urine Negative (Negative); Blood,Urine Negative (Negative); Color,Urine Light Yellow; Glucose,Urine (UA) Negative (Negative); Ketones,Urine Negative (Negative); Leukocyte Esterase,Urine Negative (Negative); Nitrite,Urine Negative (Negative); PH, Urine 5.5 (5.0-8.0); Protein,Urine Negative (Negative); Specific Gravity,Urine 1.017 (1.001-1.035); Urobilinogen,Urine <2.0 mg/dL (<2.0)
[2020-01-04] MEDS ORDERED: MULTIVITAMINS, THERA 1 EACH TAB PO SCH (04:00)
[2020-01-04] MEDS ORDERED: ASCORBIC ACID 500 MG TAB PO SCH (04:00)
[2020-01-04] MEDS ORDERED: NON FORMULARY DRUG (Ubidecarenone [Co Q-10] 400 MG Capsule) PO SCH (04:00)
[2020-01-04 08:19] LABS: Basophils % (A) 1 %; Eosinophils # (A) 0.2 k/uL (0-0.7); Eosinophils % (A) 4 %; HCT 38.5 % (34.0-46.0); HGB 13.3 gm/dL (11.4-16.0); Lymphocytes # (A) 1.6 k/uL (1.0-4.8); Lymphocytes % (A) 37 %; MCHC 34.5 g/dL (31.0-37.0); MCV 89.8 fL (80.0-100.0); Mean Platelet Volume 6.8; Monocytes # (A) 0.4 k/uL (0-1.0); Monocytes % (A) 9 %; Neutrophils % (A) 45 %; Platelet Count 254 k/uL (150-450); RBC 4.28 m/uL (3.80-5.40); RDW 12.6 % (11.5-15.5); WBC 4.4 k/uL (3.8-10.6)
[2020-01-04 08:29] LABS: African American GFR (CKD) >90 (>60 ml/min/1.73 sqM); Anion Gap 5 mmol/L; Blood Urea Nitrogen 13 mg/dL (7-17); Calcium 9.2 mg/dL (8.4-10.2); Carbon Dioxide 27 mmol/L (22-30); Chloride 109 mmol/L (98-107); Glucose 93 mg/dL (74-99); Non-African American GFR(CKD) 84 (>60 ml/min/1.73 sqM); Potassium 4.5 mmol/L (3.5-5.1); Sodium 141 mmol/L (137-145)
[2020-01-04 08:32] VITALS: BP 183/76; PULSE 68; TEMP 97.9
[2020-01-04] MEDS: METHYLPHENIDATE HCL 5 MG TAB PO SCH ×2 (08:59→13:23)
[2020-01-04] MEDS ORDERED: PANTOPRAZOLE 40 MG/10 ML VIAL IV SCH (09:00)
[2020-01-04] MEDS ORDERED: NON FORMULARY DRUG (Lysine [L-Lysine] 500 MG Tablet) PO SCH (09:00)
[2020-01-04] MEDS: BUTALB/APAP/CAFF 50-325-40MG TAB PO PRN (09:10)
[2020-01-04] MEDS: amLODIPine 10 MG TAB PO SCH (09:10)
[2020-01-04] MEDS: METOPROLOL TARTRATE 50 MG TAB PO SCH (09:11)
[2020-01-04] MEDS ORDERED: hydroCHLOROthiazide 25 MG TAB PO SCH (10:00)
[2020-01-04] MEDS ORDERED: LOSARTAN 50 MG TAB PO SCH (10:00)
--- NOTE | 2020-01-04 10:03 | P.CRDCN ---
History of Present Illness Consult date: 01/04/20 Requesting physician: Matt Mueller Reason for Consult (text): hypertension, chest pain Chief complaint: headache, hypertension History of present illness: This is a pleasant 64-year-old female patient with a history of hypertension and borderline diabetes. She is a nonsmoker and drinks rarely. He presented to the emergency department with complaints of a headache and blood pressure of 220/116 at home. She was recommended to the present ER by her primary care physician. Upon arrival blood pressure was elevated. EKG showed sinus rhythm without evidence of ischemia. Chest x-ray showed no evidence for acute pulmonary disease. CT of the brain showed no acute intracranial hemorrhage or midline shift, mild diffuse cerebral atrophy and chronic small vessel ischemic change demonstrated. CT angiogram showed no aneurysmal change at the level of [place]. The opponent's have been negative 3. Labs show a normal NT proBNP, normal BUN/creatinine normal CBC. She continues complaining of headache. Her pressure remains elevated at 183/76. She did have complaints of brief episode of palpitations a few days ago. She denies any complaints of chest pain. She's had no shortness of breath. She does have occasional edema in her lower extremities that occurs in one leg or the other but not the same leg consistently. She's had no dizziness. Past Medical History Past Medical History: Asthma, Chest Pain / Angina, GERD/Reflux, Hypertension, Sleep Apnea/CPAP/BIPAP Additional Past Medical History / Comment(s): ALLERGIES, History of Any Multi-Drug Resistant Organisms: None Reported Past Surgical History: Orthopedic Surgery Additional Past Surgical History / Comment(s): right ANKLE ORIF, LEFT KNEE SX, BENIGN BREAST BX, spinal fusion, Additional Past Anesthesia/Blood Transfusion Reaction / Comment(s): PATIENT STATES PERSONALITY CHANGES POST OP Past Psychological History: ADD/ADHD Smoking Status: Never smoker Past Alcohol Use History: Rare Past Drug Use History: None Reported Medications and Allergies Home Medications Medication Instructions Recorded Confirmed Type Aspirin 162 mg PO DAILY@1800 12/12/14 01/03/20 History Montelukast [Singulair] 10 mg PO DAILY PRN 12/12/14 01/03/20 History raNITIdine HCL [Ranitidine HCl] 300 mg PO BID PRN 12/12/14 01/03/20 History Albuterol Sulfate [Ventolin HFA] 1 puff INHALATION RT-Q6H PRN 01/03/20 01/03/20 History Ascorbic Acid [Vitamin C] 1,000 mg PO DAILY@0400 01/03/20 01/03/20 History Cats Claw Bark 500 mg PO DAILY 01/03/20 01/03/20 History Cetirizine HCl [Zyrtec] 10 mg PO DAILY@1800 01/03/20 01/03/20 History Echinacea 500 mg PO DAILY 01/03/20 01/03/20 History Ergocalciferol [Vitamin D2] 50,000 unit PO MO 01/03/20 01/03/20 History Etodolac 500 mg PO TID PRN 01/03/20 01/03/20 History Garlic 2 tab PO DAILY@0900 01/03/20 01/03/20 History Ipratropium [place] 0.06%Nasal 1 spray EA NOSTRIL HS 01/03/20 01/03/20 History [Atrovent Nasal 0.06%] Losartan Potassium [Cozaar] 100 mg PO DAILY PRN 01/03/20 01/03/20 History Lysine [l-Lysine] 1,000 mg PO DAILY 01/03/20 01/03/20 History Methylphenidate HCl [Concerta] 54 mg PO DAILY 01/03/20 01/03/20 History Metoprolol Tartrate 25 mg PO BID 01/03/20 01/03/20 History Multivit-Min/FA/Lycopen/Lutein 1 tab PO DAILY@0400 01/03/20 01/03/20 History [Centrum Silver Tablet] Nizatidine [Axid] 300 mg PO DAILY PRN 01/03/20 01/03/20 History RABEprazole SODIUM [Aciphex] 20 mg PO BID PRN 01/03/20 01/03/20 History Ubidecarenone [Co Q-10] 400 mg PO DAILY@0400 01/03/20 01/03/20 History Allergies Allergy/AdvReac Type Severity Reaction Status Date / Time codeine Allergy Rash/Hives/ Verified 01/03/20 12:51 ITCHING neomycin Allergy Swelling Verified 01/03/20 12:51 Physical Exam Vitals: Vital Signs Temp Pulse Pulse Resp BP BP Pulse Ox 01/04/20 08:23 97.9 F 68 18 183/76 96 01/04/20 03:00 97.7 F 78 18 150/77 94 L 01/03/20 21:00 97.9 F 86 18 142/61 96 01/03/20 18:31 98.3 F 01/03/20 18:24 76 16 178/84 97 01/03/20 16:45 73 18 133/76 98 01/03/20 13:43 72 17 158/80 99 01/03/20 12:47 66 16 162/87 99 01/03/20 11:30 67 18 127/69 01/03/20 11:05 149/74 01/03/20 10:30 162/85 01/03/20 10:05 98.1 F 82 18 195/95 99 Intake and Output 01/03/20 01/04/20 01/04/20 22:59 06:59 14:59 Other: Voiding Method Toilet Toilet Toilet # Voids 1 2 Weight 101.151 kg PHYSICAL EXAMINATION: This is a 64-year-old female in no apparent distress at the time of my examination. VITAL SIGNS: Blood pressure 183/76, heart rate 68, respirations 18, temp 87.9F. Patient is 96 % on room air. HEENT: Head is atraumatic, normocephalic. Pupils are equal, round. Sclerae anicteric. Conjunctivae are clear. Mucous membranes of the mouth are moist. Neck is supple. There is no elevated jugular venous pressure. No carotid bruit is heard. CHEST EXAMINATION: Clear to auscultation bilaterally. No wheezes rales or rhonchi. Respirations even and nonlabored. HEART EXAMINATION: Heart regular, positive S1 and S2. No S3. No S4. No clicks, rubs or murmurs. ABDOMEN: Soft, nontender. Bowel sounds are heard. No organomegaly noted. EXTREMITIES: 2+ peripheral pulses with no evidence of peripheral edema and no calf tenderness noted. NEUROLOGIC EXAMINATION: Patient is awake, alert and oriented x3. Results 01/04/20 07:49 01/04/20 07:49 Cardiac Enzymes 01/03/20 01/03/20 01/03/20 Range/Units 11:11 11:11 14:47 AST 25 (14-36) U/L Troponin I <0.012 <0.012 (0.000-0.034) ng/mL 01/03/20 Range/Units 17:09 AST (14-36) U/L Troponin I <0.012 (0.000-0.034) ng/mL Coagulation 01/03/20 Range/Units 11:11 PT 10.0 (9.0-12.0) sec APTT 24.2 (22.0-30.0) sec CBC 01/03/20 01/04/20 Range/Units 11:11 07:49 WBC 5.2 4.4 (3.8-10.6) k/uL RBC 4.42 4.28 (3.80-5.40) m/uL Hgb 13.5 13.3 (11.4-16.0) gm/dL Hct 39.8 38.5 (34.0-46.0) % Plt Count 288 254 (150-450) k/uL Comprehensive Metabolic Panel 01/03/20 01/04/20 Range/Units 11:11 07:49 Sodium 139 141 (137-145) mmol/L Potassium 4.1 4.5 (3.5-5.1) mmol/L Chloride 108 H 109 H (98-107) mmol/L Carbon Dioxide 22 27 (22-30) mmol/L BUN 17 13 (7-17) mg/dL Creatinine 0.71 0.76 (0.52-1.04) mg/dL Glucose 96 93 (74-99) mg/dL Calcium 9.4 9.2 (8.4-10.2) mg/dL AST 25 (14-36) U/L ALT 16 (4-34) U/L Alkaline Phosphatase 70 (38-126) U/L Total Protein 6.8 (6.3-8.2) g/dL Albumin 3.9 (3.5-5.0) g/dL Current Medications Generic Name Dose Route Start Last Admin Trade Name Freq PRN Reason Stop Dose Admin Acetaminophen 650 mg 01/03/20 14:11 01/03/20 20:26 Acetaminophen Tab 325 Mg Tab PO 650 mg Q6HR PRN Administration Mild Pain or Fever > 100.5 Acetaminophen/Butalbital/Caffeine 1 each 01/03/20 18:28 01/04/20 09:10 Butalb/Apap/Caff 50-325-40mg Tab PO 1 each BID PRN Administration Headache Albuterol Sulfate 2.5 mg 01/03/20 18:45 Albuterol Nebulized 2.5 Mg/3 Ml INHALATION RT-Q6H PRN Shortness Of Breath Alprazolam 0.25 mg 01/03/20 18:46 01/03/20 23:27 Alprazolam 0.25 Mg Tab PO 0.25 mg TID PRN Administration Anxiety Amlodipine Besylate 10 mg 01/03/20 19:00 01/04/20 09:10 Amlodipine 10 Mg Tab PO 10 mg DAILY MOE Administration Ascorbic Acid 1,000 mg 01/04/20 04:00 01/04/20 04:07 Ascorbic Acid 500 Mg Tab PO 1,000 mg DAILY@0400 MOE Administration Aspirin 162 mg 01/04/20 18:00 Aspirin 81 Mg PO DAILY@1800 [facility] Ergocalciferol 50,000 unit 01/08/20 09:00 Ergocalciferol 50,000 Unit Cap PO MO MOE Etodolac 400 mg 01/03/20 18:45 Etodolac 200 Mg Capsule PO TID PRN Pain Famotidine 40 mg 01/03/20 18:45 Famotidine 20 Mg Tab PO BID PRN GERD Hydrochlorothiazide 25 mg 01/04/20 10:00 Hydrochlorothiazide 25 Mg Tab PO DAILY [facility] Sodium Chloride 1,000 mls @ 20 mls/hr 01/03/20 14:15 01/03/20 14:48 Saline 0.9% IV Not Given .Q24H MOE Ibuprofen 400 mg 01/03/20 14:11 Ibuprofen 400 Mg Tab PO Q6HR PRN Mild Pain or Fever > 100.5 Ipratropium [place] 1 spray 01/03/20 21:00 01/03/20 20:28 Ipratropium [place] 0.06% Nasal [place] (15 Ml) EA NOSTRIL 1 spray HS [facility] Administration Ketorolac Tromethamine 15 mg 01/03/20 14:11 Ketorolac 15 Mg/Ml 1 Ml Vial IVP 01/06/20 14:12 Q6HR PRN Moderate Pain Loratadine 10 mg 01/04/20 18:00 Loratadine 10 Mg Tab PO DAILY@1800 [facility] Losartan Potassium 50 mg 01/04/20 10:00 Losartan 50 Mg Tab PO DAILY [facility] Methylphenidate HCl 15 mg 01/04/20 08:00 Methylphenidate Hcl 5 Mg Tab PO 0800,1300 [facility] Metoprolol Tartrate 50 mg 01/03/20 21:00 01/04/20 09:11 Metoprolol Tartrate 50 Mg Tab PO 50 mg BID MOE Administration Montelukast Sodium 10 mg 01/03/20 18:45 Montelukast 10 Mg Tab PO DAILY PRN Allergy Symptoms Morphine Sulfate 4 mg 01/03/20 14:11 Morphine Sulfate 4 Mg/Ml Syringe IV Q4HR PRN Severe Pain Multivitamins 1 each 01/04/20 04:00 01/04/20 04:07 Multivitamins, Thera 1 Each Tab PO 1 each DAILY@0400 MOE Administration Naloxone HCl 0.2 mg 01/03/20 14:11 Naloxone 0.4 Mg/Ml 1 Ml Vial IV Q2M PRN Opioid Reversal Ondansetron HCl 4 mg 01/03/20 14:11 Ondansetron 4 Mg/2 Ml Vial IVP Q8HR PRN Nausea And Vomiting Pantoprazole Sodium 40 mg 01/04/20 09:00 01/04/20 09:10 Pantoprazole 40 Mg/10 Ml Vial IV 40 mg DAILY MOE Administration Pantoprazole Sodium 40 mg 01/03/20 18:45 Pantoprazole 40 Mg Tablet PO BID PRN GERD Temazepam 15 mg 01/03/20 18:46 Temazepam 15 Mg Cap PO HS PRN Insomnia Intake and Output 01/03/20 01/04/20 01/04/20 22:59 06:59 14:59 Other: Voiding Method Toilet Toilet Toilet # Voids 1 2 Weight 101.151 kg 01/04/20 07:49 01/04/20 07:49 EKG Interpretations (text) Sinus rhythm Assessment and Plan Assessment: #1 hypertensive urgency #2 headache likely secondary to above Plan: From cardiology's perspective, medications were reviewed. We will discontinue when necessary clonidine. We will make losartan a routine daily medications 100 mg. We will add hydrochlorothiazide. From our standpoint the patient may be discharged home today and follow-up in the office in 2 weeks. CHIEF SCIENTIST note has been reviewed, I agree with a documented findings and plan of care. Patient was seen and examined.
[2020-01-04] MEDS ORDERED: ASPIRIN 81 MG PO SCH (18:00)
[2020-01-04] MEDS ORDERED: LORATADINE 10 MG TAB PO SCH (18:00)
--- NOTE | 2020-01-05 08:37 | DS ---
DISCHARGE SUMMARY DATE OF DISCHARGE: 01/04/2020 I am covering for Dr. Mueller. FINAL DIAGNOSIS: 1. Accelerated hypertension and hypertensive urgency. 2. Severe headache possibly acute migrainous episodes. 3. History of asthma. 4. Gastroesophageal reflux disease. 5. Hypertension. 6. History of sleep apnea. 7. History of degenerative joint disease. 8. History of attention deficit hyperactivity disorder. 9. Obesity with body mass index of 38.6. 10.FULL CODE. DISCHARGE DISPOSITION: The patient will be discharged in stable condition with a guarded prognosis. HISTORY OF PRESENT ILLNESS: This is a 64-year-old woman with past medical history of multiple medical problems, being followed by Dr. Mueller in the outpatient, admitted with significant accelerated hypertension as well as severe headache. The blood pressure was found to be 223/116 in the outpatient setting. The patient was treated symptomatically. Multiple medications were used and medication adjustment was also done. Cardiology saw the patient and cleared the patient for discharge. PHYSICAL EXAMINATION: On exam, vitals are stable. Cardiovascular system normal. Abdomen soft. Nervous system with no focal deficits. DISCHARGE INSTRUCTIONS: Diet is cardiac diet. Activity is limited until followup. Follow up with Dr. Mueller in 1-2 days, follow up with Cardiology as recommended. MEDICATIONS: 1. AcipHex b.i.d. p.r.n. as before. 2. Aspirin 160 mg p.o. daily. 3. Atrovent 1 spray in nose. 4. Axid p.r.n. 5. Coenzyme Q 400 mg p.o. daily. 6. Concerta 55 mg daily. 7. Cozaar 100 mg daily. 8. Echinacea 500 mg p.o. daily. 9. Garlic. 10.Lyrica as before. 11.Ranitidine 300 mg p.o. b.i.d. 12.Singulair 10 mg p.r.n. 13.Albuterol p.r.n. 14.Vitamin C 1000 mg p.o. daily. 15.Vitamin D 250 mg p.o. daily. 16.Zyrtec 10 mg. 17.HydroDIURIL 25 mg daily. 18.Lopressor 50 mg daily. 19.Norvasc 10 mg p.o. daily. MMODL / IJN: [id number] /
[2020-01-08] MEDS ORDERED: ERGOCALCIFEROL 50,000 UNIT CAP PO SCH (09:00)
== END 2020-01-04 14:38 ==
LOC: EC 10:02 → 1SOBS 14:03
PROVIDERS: ADMIT Family Medicine; ATTEND Family Medicine
DX: I16.0 Hypertensive urgency (principal); I10 Essential (primary) hypertension; J45.909 Unspecified asthma, uncomplicated; K21.9 Gastro-esophageal reflux disease without esophagitis; G47.30 Sleep apnea, unspecified; M19.90 Unspecified osteoarthritis, unspecified site; F90.9 Attention-deficit hyperactivity disorder, unspecified type; E66.9 Obesity, unspecified; Z68.38 Body mass index [BMI] 38.0-38.9, adult; G43.909 Migraine, unspecified, not intractable, without status migrainosus; R73.03 Prediabetes; R00.2 Palpitations; Z99.89 Dependence on other enabling machines and devices; Z79.82 Long term (current) use of aspirin; Z79.899 Other long term (current) drug therapy; Z88.5 Allergy status to narcotic agent; Z88.1 Allergy status to other antibiotic agents; G47.00 Insomnia, unspecified; R68.84 Jaw pain; T78.40XA Allergy, unspecified, initial encounter; Z98.1 Arthrodesis status
CPT/HCPCS: 96375 ×2; 96361; 96374; 99285; 36415; 93005; 83880; 80053; 80048; 83735; 84484; 85025 ×2; 85610; 85730; 81003; 71046; 70496; 70450; G0378 ×2; J1885; C9113; Q9967

== ENCOUNTER → 2020-08-29 | Outpatient (CLI) | payer BC ==
--- NOTE | 2020-08-29 16:33 | CT ---
EXAMINATION TYPE: CT soft tissue neck wo/w con DATE OF EXAM: 08/29/2020 COMPARISON: 07/15/2018 HISTORY: Localized swelling, mass, lump in neck. Pt not able to palpate lump for BB today. Occurring since June CT DLP: 1371 mGycm CONTRAST: CT scan of the neck is performed with IV Contrast, patient injected with 100 mL of Isovue 300. Contrast enhanced CT of the neck was performed from the skull base through the lung apices. AIRWAY: The supraglottic, glottic, and subglottic portions of the airway appear patent and free of mass. SALIVARY GLANDS: The submandibular and parotid glands are free of mass or inflammatory process. THYROID GLAND: No nodules or masses seen. LYMPH NODES: No adenopathy seen greater than 1cm. LUNG APICES: No nodule or mass is seen. OTHER: Vascular structures are patent. Patient is status post anterior cervical fusion and discecto my at C3- C7, there are intervertebral spacing blocks. Artifact is present. There are facet arthropat hy changes, multilevel foraminal encroachment. 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 No abscess seen. IMPRESSION: No significant abnormality seen with regards to palpable abnormality.
== END | disposition home or self-care (01) ==
LOC: RADCTMAIN 15:24
PROVIDERS: ATTEND Family Medicine
DX: R22.1 Localized swelling, mass and lump, neck (principal)
CPT/HCPCS: 70492; Q9967

== ENCOUNTER → 2020-09-19 | Outpatient (CLI) | payer BC ==
--- NOTE | 2020-09-19 07:08 | CT ---
EXAMINATION TYPE: CT sinus wo con DATE OF EXAM: 09/19/2020 COMPARISON: CT brain January 03, 2020 HISTORY: Chronic Sinusitis per order. Headaches with dizziness and Sinus and ear infections since June per patient. CT DLP: 537 mGycm. Automated Exposure Control for Dose Reduction was Utilized. TECHNIQUE: CT scan of the sinuses is performed without contrast, axial images are obtained, coronal r eformatted images are also reviewed. FINDINGS: Somewhat small caliber left maxillary sinus redemonstrated . Hypoplastic bilateral frontal sinuses. The paranasal sinuses are well-aerated without abnormal opacification or suspicious air-flu id levels. The ostiomeatal complex is patent bilaterally on the coronal images. Visualized portion of mastoid air cells show no abnormal opacification. The globes are intact bilate rally. Visualized portion of brain parenchyma shows diffuse age-related cerebral atrophy and chronic small vessel ischemic change. IMPRESSION: The sinuses are clear and the ostiomeatal complex is patent bilaterally.
== END | disposition home or self-care (01) ==
LOC: RADCTMAIN 06:35
PROVIDERS: ATTEND Otolaryngology
DX: J32.9 Chronic sinusitis, unspecified (principal)
CPT/HCPCS: 70486

== ENCOUNTER 2021-03-05 13:56 | Emergency (ER) | payer BC ==
--- NOTE | 2021-03-05 14:55 | ED ---
General Adult HPI - General Chief complaint: Shortness of Breath Stated complaint: Covid+, SOB Time Seen by Provider: 03/05/21 14:48 Source: patient, RN notes reviewed, old records reviewed Mode of arrival: ambulatory Limitations: no limitations - History of Present Illness Initial comments: This is a 65-year-old female who presents emergency Department complaining of a persistent cough since she had COVID on February 12. Patient states she's also short of breath. Patient states she went to see her primary medical care doctor in though she has been placed on 3 different antibiotics she is not getting any better. The doctor wanted to come in to be evaluated. Patient states she's had a heaviness in her chest ever since February 12's been constant and all day long. Patient denies any recent fever. Patient denies any abdominal pain. Patient denies headache patient denies lightheadedness or dizziness. - Related Data Home Medications Medication Instructions Recorded Confirmed Aspirin 81 mg PO DAILY@1800 12/12/14 03/05/21 Montelukast [Singulair] 10 mg PO DAILY PRN 12/12/14 03/05/21 Albuterol Sulfate [Ventolin HFA] 1 - 2 puff INHALATION RT-Q4H PRN 01/03/20 03/05/21 Ascorbic Acid [Vitamin C] 500 mg PO DAILY@0400 01/03/20 03/05/21 Cats Claw Bark 500 mg PO DAILY 01/03/20 03/05/21 Cetirizine HCl [Zyrtec] 10 mg PO DAILY@1800 01/03/20 03/05/21 Echinacea 500 mg PO DAILY 01/03/20 03/05/21 Ergocalciferol [Vitamin D2 50,000 unit PO MO 01/03/20 03/05/21 (DRISDOL)] Etodolac 500 mg PO Q8H PRN 01/03/20 03/05/21 Garlic 1 tab PO DAILY@0900 01/03/20 03/05/21 Ipratropium [place] 0.06%Nasal 1 spray EA NOSTRIL HS 01/03/20 03/05/21 [Atrovent Nasal 0.06%] Lysine [l-Lysine] 500 mg PO DAILY 01/03/20 03/05/21 Multivit-Min/FA/Lycopen/Lutein 1 tab PO DAILY@0400 01/03/20 03/05/21 [Centrum Silver Tablet] RABEprazole SODIUM [Aciphex] 20 mg PO DAILY 01/03/20 03/05/21 Ubidecarenone [Co Q-10] 400 mg PO DAILY@0400 01/03/20 03/05/21 Acetaminophen/Diphenhydramine 2 tab PO HS PRN 03/05/21 03/05/21 [Tylenol PM 500-25mg] Albuterol Nebulized [Ventolin 2.5 mg INHALATION RT-Q4H PRN 03/05/21 03/05/21 Nebulized] Aspirin/Acetaminophen/Caffeine 1 tab PO DAILY PRN 03/05/21 03/05/21 [Excedrin Migraine Caplet] Baclofen [Lioresal] 20 mg PO DAILY PRN 03/05/21 03/05/21 Cider Vinegar [Apple Cider Vinegar] 300 mg PO DAILY 03/05/21 03/05/21 Cyclobenzaprine [Flexeril] 10 mg PO HS PRN 03/05/21 03/05/21 Ibuprofen/Diphenhydramine HCl 1 cap PO HS PRN 03/05/21 03/05/21 [Advil Pm Liqui-Gels] Lubricating Eye Drop 1 drop BOTH EYES DAILY PRN 03/05/21 03/05/21 [employer] Mucus And Sinus 1 tab PO DAILY PRN 03/05/21 03/05/21 Olmesartan/Hydrochlorothiazide 1 tab PO DAILY 03/05/21 03/05/21 [Benicar Hct 40-25 mg Tablet] Zicam 1 tab PO DAILY PRN 03/05/21 03/05/21 methocarbamoL [Robaxin] 500 mg PO DAILY PRN 03/05/21 03/05/21 Previous Rx's Medication Instructions Recorded Metoprolol Tartrate [Lopressor] 50 mg PO BID #60 tab 01/04/20 amLODIPine [Norvasc] 10 mg PO DAILY #30 tab 01/04/20 Dexamethasone [Decadron] 6 mg PO DAILY #10 tablet 03/05/21 Allergies Allergy/AdvReac Type Severity Reaction Status Date / Time codeine Allergy Rash/Hives/ Verified 03/05/21 15:23 ITCHING neomycin Allergy Swelling Verified 03/05/21 15:23 Review of Systems ROS Statement: Those systems with pertinent positive or pertinent negative responses have been documented in the HPI. ROS Other: All systems not noted in ROS Statement are negative. Past Medical History Past Medical History: Asthma, Chest Pain / Angina, GERD/Reflux, Hypertension, Sleep Apnea/CPAP/BIPAP Additional Past Medical History / Comment(s): ALLERGIES, History of Any Multi-Drug Resistant Organisms: None Reported Past Surgical History: Orthopedic Surgery Additional Past Surgical History / Comment(s): right ANKLE ORIF, LEFT KNEE SX, BENIGN BREAST BX, spinal fusion, Additional Past Anesthesia/Blood Transfusion Reaction / Comment(s): PATIENT STATES PERSONALITY CHANGES POST OP Past Psychological History: ADD/ADHD Smoking Status: Never smoker Past Alcohol Use History: Rare Past Drug Use History: None Reported General Exam - General Exam Comments Initial Comments: GENERAL: Patient is well-developed and well-nourished. Patient is nontoxic and well- hydrated and is in mild distress. ENT: Neck is soft and supple. No significant lymphadenopathy is noted. Oropharynx is clear. Moist mucous membranes. Neck has full range of motion without eliciting any pain. EYES: The sclera were anicteric and conjunctiva were pink and moist. Extraocular movements were intact and pupils were equal round and reactive to light. Eyel ids were unremarkable. PULMONARY: Unlabored respirations. Good breath sounds bilaterally. No audible rales rhonchi or wheezing was noted. CARDIOVASCULAR: There is a regular rate and rhythm without any murmurs gallops or rubs. ABDOMEN: Soft and nontender with normal bowel sounds. SKIN: Skin is clear with no lesions or rashes and otherwise unremarkable. NEUROLOGIC: Patient is alert and oriented x3. Cranial nerves II through XII are grossly intact. Motor and sensory are also intact. Normal speech, volume and content. Symmetrical smile. MUSCULOSKELETAL: Normal extremities with adequate strength and full range of motion. No lower extremity swelling or edema. No calf tenderness. LYMPHATICS: No significant lymphadenopathy is noted PSYCHIATRIC: Normal psychiatric evaluation. Limitations: no limitations Course Vital Signs 03/05/21 03/05/21 03/05/21 14:00 15:13 15:43 Temperature 98.0 F Pulse Rate 76 66 Respiratory 28 H 22 18 Rate Blood Pressure 121/71 118/69 O2 Sat by Pulse 97 96 Oximetry 03/05/21 03/05/21 17:03 17:07 Temperature 97.9 F Pulse Rate 69 72 Respiratory 16 18 Rate Blood Pressure 122/82 120/72 O2 Sat by Pulse 99 97 Oximetry Medical Decision Making - Medical Decision Making EKG shows normal sinus rhythm at 70 bpm MT interval is on a 46 QRS is 74 QT interval 394 QTC is 425. Patient's EKG shows no ST segment elevation or depression. Chest x-ray shows COVID motor bilaterally. CT of the chest shows no PE but does have bilateral COVID pneumonia. - Lab Data Result diagrams: 03/05/21 14:40 03/05/21 14:40 Lab Results 03/05/21 03/05/21 03/05/21 Range/Units 14:40 14:40 14:40 WBC 7.5 (3.8-10.6) k/uL RBC 3.64 L (3.80-5.40) m/uL Hgb 11.4 (11.4-16.0) gm/dL Hct 34.6 (34.0-46.0) % MCV 95.2 (80.0-100.0) fL MCH 31.4 (25.0-35.0) pg MCHC 33.0 (31.0-37.0) g/dL RDW 15.1 (11.5-15.5) % Plt Count 315 (150-450) k/uL MPV 7.1 Neutrophils % 77 % Lymphocytes % 14 % Monocytes % 7 % Eosinophils % 0 % Basophils % 1 % Neutrophils # 5.7 (1.3-7.7) k/uL Lymphocytes # 1.0 (1.0-4.8) k/uL Monocytes # 0.5 (0-1.0) k/uL Eosinophils # 0.0 (0-0.7) k/uL Basophils # 0.0 (0-0.2) k/uL PT 9.8 (9.0-12.0) sec INR 0.9 (<1.2) APTT 23.6 (22.0-30.0) sec D-Dimer 0.64 H (<0.60) mg/L FEU Sodium 140 (137-145) mmol/L Potassium 4.5 (3.5-5.1) mmol/L Chloride 109 H (98-107) mmol/L Carbon Dioxide 23 (22-30) mmol/L Anion Gap 8 mmol/L BUN 13 (7-17) mg/dL Creatinine 0.76 (0.52-1.04) mg/dL Est GFR (CKD-EPI)AfAm >90 (>60 ml/min/1.73 sqM) Est GFR (CKD-EPI)NonAf 84 (>60 ml/min/1.73 sqM) Glucose 141 H (74-99) mg/dL Plasma Lactic Acid William (0.7-2.0) mmol/L Calcium 8.8 (8.4-10.2) mg/dL Magnesium 2.2 (1.6-2.3) mg/dL Total Bilirubin 0.6 (0.2-1.3) mg/dL AST 30 (14-36) U/L ALT 24 (4-34) U/L Alkaline Phosphatase 59 (38-126) U/L Troponin I (0.000-0.034) ng/mL NT-Pro-B Natriuret Pep pg/mL Total Protein 6.5 (6.3-8.2) g/dL Albumin 3.5 (3.5-5.0) g/dL 03/05/21 03/05/21 03/05/21 Range/Units 14:40 14:40 14:40 WBC (3.8-10.6) k/uL RBC (3.80-5.40) m/uL Hgb (11.4-16.0) gm/dL Hct (34.0-46.0) % MCV (80.0-100.0) fL MCH (25.0-35.0) pg MCHC (31.0-37.0) g/dL RDW (11.5-15.5) % Plt Count (150-450) k/uL MPV Neutrophils % % Lymphocytes % % Monocytes % % Eosinophils % % Basophils % % Neutrophils # (1.3-7.7) k/uL Lymphocytes # (1.0-4.8) k/uL Monocytes # (0-1.0) k/uL Eosinophils # (0-0.7) k/uL Basophils # (0-0.2) k/uL PT (9.0-12.0) sec INR (<1.2) APTT (22.0-30.0) sec D-Dimer (<0.60) mg/L FEU Sodium (137-145) mmol/L Potassium (3.5-5.1) mmol/L Chloride (98-107) mmol/L Carbon Dioxide (22-30) mmol/L Anion Gap mmol/L BUN (7-17) mg/dL Creatinine (0.52-1.04) mg/dL Est GFR (CKD-EPI)AfAm (>60 ml/min/1.73 sqM) Est GFR (CKD-EPI)NonAf (>60 ml/min/1.73 sqM) Glucose (74-99) mg/dL Plasma Lactic Acid William 1.1 (0.7-2.0) mmol/L Calcium (8.4-10.2) mg/dL Magnesium (1.6-2.3) mg/dL Total Bilirubin (0.2-1.3) mg/dL AST (14-36) U/L ALT (4-34) U/L Alkaline Phosphatase (38-126) U/L Troponin I <0.012 (0.000-0.034) ng/mL NT-Pro-B Natriuret Pep 227 pg/mL Total Protein (6.3-8.2) g/dL Albumin (3.5-5.0) g/dL Disposition Clinical Impression: Pneumonia due to COVID-19 virus Disposition: HOME SELF-CARE Instructions (If sedation given, give patient instructions): Coronavirus Disease 2019 (COVID-19) Prescriptions: Dexamethasone [Decadron] 6 mg PO DAILY #10 tablet Is patient prescribed a controlled substance at d/c from ED?: No Referrals: Arlene Mueller DO [Primary Care Provider] - 1-2 days Time of Disposition: 16:56
[2021-03-05 15:11] LABS: Basophils % (A) 1 %; Eosinophils % (A) 0 %; HCT 34.6 % (34.0-46.0); HGB 11.4 gm/dL (11.4-16.0); Lymphocytes % (A) 14 %; MCH 31.4 pg (25.0-35.0); MCV 95.2 fL (80.0-100.0); Mean Platelet Volume 7.1; Monocytes # (A) 0.5 k/uL (0-1.0); Monocytes % (A) 7 %; Neutrophils # (A) 5.7 k/uL (1.3-7.7); Neutrophils % (A) 77 %; Platelet Count 315 k/uL (150-450); RBC 3.64 m/uL (3.80-5.40); RDW 15.1 % (11.5-15.5); WBC 7.5 k/uL (3.8-10.6)
[2021-03-05 15:20] LABS: ALT 24 U/L (4-34); AST 30 U/L (14-36); African American GFR (CKD) >90 (>60 ml/min/1.73 sqM); Albumin 3.5 g/dL (3.5-5.0); Alkaline Phosphatase 59 U/L (38-126); Anion Gap 8 mmol/L; Blood Urea Nitrogen 13 mg/dL (7-17); Calcium 8.8 mg/dL (8.4-10.2); Carbon Dioxide 23 mmol/L (22-30); Chloride 109 mmol/L (98-107); Glucose 141 mg/dL (74-99); Magnesium 2.2 mg/dL (1.6-2.3); Non-African American GFR(CKD) 84 (>60 ml/min/1.73 sqM); Potassium 4.5 mmol/L (3.5-5.1); Sodium 140 mmol/L (137-145); Total Bilirubin 0.6 mg/dL (0.2-1.3); Total Protein 6.5 g/dL (6.3-8.2)
[2021-03-05 15:36] LABS: INR 0.9 (<1.2); Partial Thromboplastin Time 23.6 sec (22.0-30.0); Prothrombin Time 9.8 sec (9.0-12.0)
--- NOTE | 2021-03-05 15:42 | XR ---
EXAMINATION TYPE: XR chest 2V DATE OF EXAM: 03/05/2021 COMPARISON: Chest x-ray January 03, 2020 HISTORY: Shortness of breath. COVID positive. TECHNIQUE: Frontal and lateral views of the chest are obtained. FINDINGS: There are persistent low lung volumes.. New faint bilateral multifocal increased opacities greatest in the periphery. Cardiac flow size stable and within normal limits. No pleural effusion or pneumothorax noted. Extensive surgical change to the cervical spine is redemonstrated. IMPRESSION: New bilateral multifocal increased opacities consistent with covid-19 infection.
--- NOTE | 2021-03-05 16:40 | CT ---
EXAMINATION TYPE: CT chest angio for PE DATE OF EXAM: 03/05/2021 COMPARISON: Chest x-ray earlier today HISTORY: Shortness of breath. pe, covid CT DLP: 542.8 mGycm. Automated Exposure Control for Dose Reduction was Utilized. CONTRAST: CTA scan of the thorax is performed with IV Contrast, patient injected with 100 mL of Isovue 370, pul monary embolism protocol. MIP Images are created on CT scanner and reviewed. FINDINGS: LUNGS: Low lung volumes with bilateral multifocal groundglass opacities is confirmed as suspected on x-ray. No pleural effusion or pneumothorax seen. Tracheobronchial tree is patent. MEDIASTINUM: There is satisfactory enhancement of the pulmonary artery and its branches, there is no CT evidence for pulmonary embolism. Satisfactory enhancement of the aorta without aneurysm or dissec tion. Bovine type arch is seen which is normal variant. There are prominent bilateral hilar lymph nod es presumed reactive. No cardiomegaly or pericardial effusion is seen. Somewhat small size thyroid gland, correlate clinically for hypothyroidism. OTHER: Exaggerated thoracic kyphosis with mild/moderate multilevel anterior and lateral spurring. IMPRESSION: No CT evidence for acute pulmonary embolism. Confirmation of bilateral multifocal ground glass opacities consistent with covid-19 infection.
[2021-03-05 17:05] VITALS: TEMP 97.9
[2021-03-05 17:09] VITALS: BP 120/72; PULSE 72; RESP 18
== END 2021-03-05 17:07 | disposition home or self-care (01) ==
LOC: EC 13:56
DX: U07.1 COVID-19 (principal); J12.82 Pneumonia due to coronavirus disease 2019; J45.909 Unspecified asthma, uncomplicated; I10 Essential (primary) hypertension; K21.9 Gastro-esophageal reflux disease without esophagitis; Z79.811 Long term (current) use of aromatase inhibitors; Z88.5 Allergy status to narcotic agent; Z88.1 Allergy status to other antibiotic agents
CPT/HCPCS: 36415; 93005; 85379; 83880; 80053; 83605; 83735; 84484; 85025; 85610; 85730; 87040; 71046; 71275; 99285; Q9967

== ENCOUNTER 2022-01-08 08:59 | Day surgery (SDC) | payer BC, MEDICARE ==
[2022-01-06 09:59] VITALS: BMI 37.5
[~2022-01-08 08:59] MED LIST changes: +LACTATED RINGERS 1,000 ML IV SCH; +LIDOCAINE 1% (10MG/ML) FOR IV START INTRADERMA PRN; -REGADENOSON 0.4 MG/5 ML SYRINGE IV ONE
[2022-01-08 09:38] VITALS: TEMP 96.8
--- NOTE | 2022-01-08 09:55 | P.GSHP ---
History of Present Illness H&P Date: 01/08/22 Chief Complaint: GI bleed This a 66-year-old female who presents today for colonoscopy patient's issues with rectal bleeding. Past Medical History Past Medical History: Asthma, Chest Pain / Angina, GERD/Reflux, Hypertension, Osteoarthritis (OA), Sleep Apnea/CPAP/BIPAP Additional Past Medical History / Comment(s): allergies, c-pap machine, states irregular heart beat., hx anemia., positive cologard., states longhaul covid (states covid illness jan 2021 thru april 2021-states it affected her heart & kidneys.., states occasional left side weakness with falls (seen neurologist). History of Any Multi-Drug Resistant Organisms: None Reported Past Surgical History: Back Surgery, Orthopedic Surgery, Tonsillectomy Additional Past Surgical History / Comment(s): right ANKLE ORIF, LEFT KNEE SX, BENIGN BREAST BX, cervical spinal fusion with cage. , colonoscopy Past Anesthesia/Blood Transfusion Reactions: Motion Sickness, Postoperative Nausea & Vomiting (PONV) Additional Past Anesthesia/Blood Transfusion Reaction / Comment(s): states irritable post-op Past Psychological History: ADD/ADHD, Anxiety, Depression Smoking Status: Never smoker Past Alcohol Use History: Rare Past Drug Use History: None Reported - Past Family History Mother Family Medical History: No Reported History Father Family Medical History: Cancer Additional Family Medical History / Comment(s): skin cancer Medications and Allergies Home Medications Medication Instructions Recorded Confirmed Type Aspirin 81 mg PO DAILY 12/12/14 01/08/22 History Albuterol Sulfate [Ventolin HFA] 1 - 2 puff INHALATION RT-Q4H PRN 01/03/20 01/08/22 History Ascorbic Acid [Vitamin C] 500 mg PO DAILY 01/03/20 01/08/22 History Cats Claw Bark 500 mg PO DAILY 01/03/20 01/08/22 History Cetirizine HCl [Zyrtec] 10 mg PO DAILY 01/03/20 01/08/22 History Echinacea 500 mg PO DAILY 01/03/20 01/08/22 History Ergocalciferol [Vitamin D2 50,000 unit PO WEEKLY 01/03/20 01/08/22 History (DRISDOL)] Etodolac 500 mg PO Q8H PRN 01/03/20 01/08/22 History Garlic 1 tab PO DAILY 01/03/20 01/08/22 History Ipratropium [place] 0.06%Nasal 1 spray EA NOSTRIL HS 01/03/20 01/08/22 History [Atrovent Nasal 0.06%] Lysine [l-Lysine] 500 mg PO DAILY 01/03/20 01/08/22 History Multivit-Min/FA/Lycopen/Lutein 1 tab PO DAILY 01/03/20 01/08/22 History [Centrum Silver Tablet] RABEprazole SODIUM [Aciphex] 20 mg PO BID PRN 01/03/20 01/08/22 History Ubidecarenone [Co Q-10] 400 mg PO DAILY 01/03/20 01/08/22 History Metoprolol Tartrate [Lopressor] 50 mg PO BID #60 tab 01/04/20 01/08/22 Rx Cider Vinegar [Apple Cider Vinegar] 300 mg PO DAILY 03/05/21 01/08/22 History Olmesartan/Hydrochlorothiazide 1 tab PO DAILY@1300 03/05/21 01/08/22 History [Benicar Hct 40-25 mg Tablet] Melatonin 10 mg PO HS PRN 01/06/22 01/08/22 History Vitamin B Complex 1 each PO DAILY 01/06/22 01/08/22 History amLODIPine [Norvasc] 5 mg PO DAILY@1300 01/06/22 01/08/22 History methocarbamoL [Robaxin-750] 750 mg PO DIRECTED PRN 01/06/22 01/08/22 History Allergies Allergy/AdvReac Type Severity Reaction Status Date / Time corn Allergy Unknown upper Verified 01/08/22 09:35 respiratory infection codeine Allergy Rash/Hives/ Verified 01/08/22 09:35 ITCHING neomycin Allergy Swelling Verified 01/08/22 09:35 Surgical - Exam Vital Signs Temp Pulse Resp BP Pulse Ox 96.8 F L 89 18 118/56 98 01/08/22 09:31 01/08/22 09:31 01/08/22 09:31 01/08/22 09:31 01/08/22 09:31 - General well developed, well nourished, no distress - Eyes PERRL - ENT normal pinna - Neck no masses - Respiratory normal expansion - Cardiovascular Rhythm: regular - Abdomen Abdomen: soft, non tender Assessment and Plan Assessment: GI bleed. We'll perform colonoscopy
[2022-01-08] MEDS ORDERED: PROPOFOL 10 MG/ML 20 ML VIAL IV ONE (09:56)
--- NOTE | 2022-01-08 10:13 | P.OP ---
Date of Procedure: 01/08/22 Preoperative Diagnosis: GI bleed Postoperative Diagnosis: Mild diverticulosis Procedure(s) Performed: Colonoscopy Anesthesia: MAC Surgeon: Isak Rose Pathology: none sent Condition: stable Disposition: PACU Description of Procedure: Patient's placed on the endoscopy table in the lateral position. She received IV sedation. Digital rectal exam performed. This revealed no ebonized. The flexible colonoscope was then placed patient anus and passed throughout the entire colon. The ileocecal valve was visualized. Cecum, ascending and transverse colon appeared normal. In the descending and sigmoid colon there is mild diverticular changes. Scope was then brought back the rectum and this appeared normal. Scope withdrawn for patient. There is no evidence of any GI bleed. Presumed patient may have bleeding from diverticulosis.
[2022-01-08 10:27] VITALS: RESP 16
[2022-01-08 10:39] VITALS: BP 102/69; PULSE 60
== END 2022-01-08 11:13 | disposition home or self-care (01) ==
LOC: ORWHC2ENDO 08:59
PROVIDERS: ATTEND Surgery
DX: K92.1 Melena (principal); K57.30 Diverticulosis of large intestine without perforation or abscess without bleeding; J45.909 Unspecified asthma, uncomplicated; K21.9 Gastro-esophageal reflux disease without esophagitis; I10 Essential (primary) hypertension; M19.90 Unspecified osteoarthritis, unspecified site; G47.33 Obstructive sleep apnea (adult) (pediatric); Z86.16 Personal history of COVID-19; F41.9 Anxiety disorder, unspecified; F32.9 Major depressive disorder, single episode, unspecified; Z86.59 Personal history of other mental and behavioral disorders; Z79.82 Long term (current) use of aspirin; Z79.899 Other long term (current) drug therapy
CPT/HCPCS: 45378; J2704

== ENCOUNTER → 2022-11-19 | Outpatient (CLI) | payer MEDICARE ==
[~2022-11-19] MED LIST changes: -LACTATED RINGERS 1,000 ML IV SCH; -LIDOCAINE 1% (10MG/ML) FOR IV START INTRADERMA PRN; +REGADENOSON 0.4 MG/5 ML SYRINGE IV PRN
--- NOTE | 2022-11-19 11:10 | NM ---
EXAMINATION TYPE: NM stress lexiscan cardiolite DATE OF EXAM: 11/19/2022 COMPARISON: NONE CLINICAL INDICATION: Female, 67 years old with history of R07.89 CHEST PAIN; TECHNIQUE: After the intravenous administration of 9.55 mCi Tc 99m Sestamibi - Cardiolite resting SP ECT images acquired 45 minutes post injection. The patient received 0.4mg Lexiscan, 25.5 mCi Tc 99m Sestamibi - Stress images obtained [address] injection FINDINGS: Review of stress and rest SPECT images demonstrates no distinct perfusion abnormality. Gated analysi s shows normal wall motion with an estimated left ventricular ejection fraction of 53 %. IMPRESSION: No scintigraphic evidence for reversible ischemia.
--- NOTE | 2022-11-19 20:20 | CA ---
Lexiscan Nuclear Stress Test Report Name: Giovana Zapata Exam Date: 11/19/2022 09:46 Exam Location: [place] Stress Ht (in): 64 Wt (lb): 217 BSA: 2.03 Ordering Phys: Arlene Mueller DO Referring Phys: Flash, Technologist: Darren Harry Age: 67 Gender: F : 1955 Procedure CPT: Indications: R07.89 chest pain ICD-10 Codes: Patient History: Medications: SEE LIST Meds past 24 hrs: Pretest Chest Pain: STRESS TEST Lexiscan Protocol Exercise Duration (min:sec): 02:[address] Depressions (mm): Angina Score: Cavazos Score: Resting HR (bpm): 52 Peak HR (bpm): 79 Resting BP (mmHg): 118 / 50 Peak BP (mmHg): 104 / 62 MPHR: 154 Target HR: 131 % MPHR: 51 METS: 1.0 Total Dose: Peak Dose: Atropine: Double Product: 8216 BP Response: Stress Termination: PROTOCOL COMPLETE Stress Symptoms: No chest pain or symptoms Stress Summary: ECG ANALYSIS Resting ECG: Stress ECG: CONCLUSIONS Normal heart rate and blood pressure response during Lexiscan infusion No evidence for ischemia or arrhythmia Dr. Luis Vidales MD (Electronically Signed) Final Date: 19 November 2022 20:20
== END | disposition home or self-care (01) ==
LOC: RADNMMAIN 08:10
PROVIDERS: ATTEND Family Medicine
DX: R07.89 Other chest pain (principal)
CPT/HCPCS: 93017; 78452; A9500; J2785

== ENCOUNTER → 2023-04-22 | Outpatient (CLI) | payer MEDICARE ==
--- NOTE | 2023-04-22 20:13 | EEG ---
ELECTROENCEPHALOGRAM REPORT CLINICAL HISTORY: This is a 67-year-old woman with reported presyncopal episode. The video EEG is obtained to evaluate for seizure and epileptiform activity. RELEVANT MEDICATION: The patient is not on any antiepileptic drugs per the deburring technician documentation. EEG TYPE: A routine 21-channel EEG with video using the 10/20 electrode placement system. DESCRIPTION: Wakefulness and brief drowsiness is obtained. During awake state, the posterior- dominant rhythm consists of hzb-zy-tnitmyuw voltage of 8.5 to 9.5 hertz activity that is well modulated and well sustained. There is no physiological stage 2 sleep architecture. There is no focal slowing. Interictal and ictal is none. ACTIVATION PROCEDURE: Photic stimulation did not evoke a posterior driving response. There is no abnormality during the photic stimulation. Hyperventilation is not performed. CLINICAL INTERPRETATION: This is a normal routine EEG. There is no focal slowing, epileptiform discharge, or seizure on the EEG. A normal routine EEG does not rule out underlying epilepsy. Clinical correlation is recommended. KEHINDE / ELPIDIO: [id number] / LEE
== END ==
LOC: NEUROMAIN 08:09
PROVIDERS: ATTEND Family Medicine
DX: R55 Syncope and collapse (principal); Z88.5 Allergy status to narcotic agent; Z88.8 Allergy status to other drugs, medicaments and biological substances; Z88.1 Allergy status to other antibiotic agents; Z91.018 Allergy to other foods; Z79.82 Long term (current) use of aspirin
CPT/HCPCS: 95816

== ENCOUNTER 2023-08-23 06:59 | Day surgery (SDC) | payer MEDICARE ==
[2023-08-18 14:49] VITALS: BMI 36.0
[~2023-08-23 06:59] MED LIST changes: -REGADENOSON 0.4 MG/5 ML SYRINGE IV PRN; +SODIUM CHLORIDE 0.9% 1,000 ML IV SCH
[2023-08-23] MEDS: SODIUM CHLORIDE 0.9% 500 ML 500 ML IV ONE (07:15)
[2023-08-23 07:25] VITALS: BP 110/50; PULSE 64; RESP 16; TEMP 97.1
--- NOTE | 2023-08-23 16:54 | P.EPPROC ---
- EP Procedure Note Electrophysiology Procedure Note: Diagnosis Recurrent presyncope Twelve-lead EKG shows sinus rhythm normal CO narrow QRS normal ST segments normal QT interval subtle early repolarization abnormality of 1 mm, inferolateral leads Baseline heart rate 59 beats a minute, baseline blood pressure 110/56 mmHg Patient was tilted upright in angle of 70 degrees per protocol there was no change in heart rate or blood pressure No evidence for neurocardiogenic syncope or dysautonomia Patient was laid supine at the end of the procedure Impression normal twelve-lead EKG Normal heart rate and blood pressure response to upright tilting
== END 2023-08-23 10:09 | disposition home or self-care (01) ==
LOC: CATHEP 06:59
PROVIDERS: ATTEND Internal Medicine Clinical Cardiac Electrophysiology
DX: R55 Syncope and collapse (principal); I10 Essential (primary) hypertension; I51.7 Cardiomegaly; Z79.899 Other long term (current) drug therapy
CPT/HCPCS: 93660

== ENCOUNTER 2023-11-09 12:06 | Day surgery (SDC) | payer MEDICARE ==
[2023-11-03 12:19] VITALS: BMI 35.5
[2023-11-09 12:25] VITALS: TEMP 98
[2023-11-09] MEDS: SODIUM CHLORIDE 0.9% 1,000 ML IV SCH (12:25)
[2023-11-09] MEDS: IV FLUID CONTINUATION 1,000 ML IV ONE (12:26)
[2023-11-09] MEDS: LIDOCAINE 1% INJ 10MG/ML (20 ML MDV) SQ ONE ×2 (15:04→15:06)
--- NOTE | 2023-11-09 15:19 | P.EPPROC ---
- EP Procedure Note Electrophysiology Procedure Note: Loop monitor implant Primary physicians: Dr. Arlene Mueller Salesperson [employer]: Dr. Vidales Indication: Sick sinus syndrome, syncope Patient was brought to the EP lab in a fasting state. Written informed consent was obtained prior to the procedure. The left pectoral area was prepped and d raped per protocol. Intravenous antibiotic was administered preoperatively. A subcutaneous Loop monitor was implanted successfully and the wound was closed per protocol. The device was programmed to detect significant joey- arrhythmic and tachy-arrhythmic events, per protocol. Device and programming details: Syncope and sick sinus syndrome/bradycardia protocol
--- NOTE | 2023-11-09 15:21 | P.PRLE ---
RE: Giovana Zapata Dear Arlene Zapata underwent successful implantation of loop monitor. We will monitor her for any evidence for symptomatic sick sinus syndrome and bradycardia and will forward a note to you at that point. For now, she will continue her current cardiac medications unchanged Thank you for entrusting me with the care of the patient Warm regards Sincerely Luis Vidales
[2023-11-09 15:41] VITALS: BP 122/61; PULSE 73; RESP 16
== END 2023-11-09 15:41 | disposition home or self-care (01) ==
LOC: CATHEP 12:06
PROVIDERS: ATTEND Internal Medicine Clinical Cardiac Electrophysiology
DX: R55 Syncope and collapse
CPT/HCPCS: 33285

== ENCOUNTER → 2023-12-07 | Outpatient (CLI) | payer MEDICARE ==
--- NOTE | 2023-12-08 11:19 | MM ---
Reason for Exam: Screening (asymptomatic). Last mammogram was performed 1 year(s) and 11 month(s) ago. Patient History: Menarche at age 16. First Full-Term at age 25. Postmenopausal. 1980, Lumpectomy on the Left side. Sister had breast cancer, age 70. Risk Values: Delilah 5 year model risk: 3.0%. NCI Lifetime model risk: 9.9%. Prior Study Comparison: 02/28/2014 Bilateral Screening Mammogram, [facility]. 03/01/2015 Bilateral Screening Mammogram, [facility]. 01/11/2018 Bilateral Diagnostic Mammogram, [facility]. 12/27/2020 Bilateral Diagnostic Mammogram, [facility]. 12/29/2021 Bilateral Screening Mammogram, [facility]. Tissue Density: There are scattered areas of fibroglandular density. Findings: Analyzed By CAD. Benign bilateral round and punctate calcifications redemonstrated. There is no suspicious group of microcalcifications or new suspicious mass in either breast. Overall Assessment: Benign, BI-RAD 2 Management: Screening Mammogram of both breasts in 1 year. . Patient should continue monthly self-breast exams. A clinical breast exam by your physician is recommended on an annual basis. This exam should not preclude additional follow-up of suspicious palpable abnormalities. Note on Delilah scores and lifetime risk: 1. A Delilah score greater than 3% is considered moderate risk. If this is the case, consider specialist referral to assess eligibility for a risk reducing agent. 2. If overall lifetime risk for the development of breast cancer is 20% or higher, the patient may qualify for future screening with alternating mammogram and breast MRI. [facility], , 12/08/2023 11:15 AM. Electronically signed and approved by: Jade Daniels M.D. Radiologist
== END | disposition home or self-care (01) ==
LOC: RADMAMWWP 08:23
PROVIDERS: ATTEND Family Medicine
CPT/HCPCS: 77063; 77067

== ENCOUNTER → 2023-12-23 | Outpatient (CLI) | payer MEDICARE ==
--- NOTE | 2023-12-23 12:41 | MR ---
EXAMINATION TYPE: MR cervical spine wo con DATE OF EXAM: 12/23/2023 9:46 AM COMPARISON: 06/25/2017. CLINICAL INDICATION: Female, 68 years old with history of M54.12 radiculopathy, Neck pain, headaches, numbness/tinglng in arms/hands. TECHNIQUE: Multi planar, multi sequence imaging was performed utilizing: T1-weighted, T2-weighted, an d turbo inversion recovery imaging of the cervical spine. IV Contrast: (None, if empty) FINDINGS: Alignment: The cervical vertebral bodies have preserved heights. Alignment is within normal limits gi nicholas patient positioning. Bones: Postsurgical changes to the cervical spine with susceptibility. Bone signal is within normal l imits. No abnormal bone marrow edema on inversion recovery sequences. Cord: The spinal cord is unremarkable with regards to their signal intensity and morphology. Discs: Intervertebral disc signal is maintained. C2-C3: No significant disc pathology. The spinal canal is patent. Bilateral facet and uncovertebral joint arthropathy are present with mild left neural foraminal stenosis. The right neural foramen is p atent. C3-C4: No significant disc pathology. The spinal canal is patent. Bilateral facet and uncovertebral joint arthropathy are present with mild bilateral neural foraminal stenosis. C4-C5: No significant disc pathology. The spinal canal is patent. Bilateral facet and uncovertebral joint arthropathy are present with mild bilateral neural foraminal stenosis. C5-C6: No significant disc pathology. The spinal canal is patent. Bilateral facet and uncovertebral joint arthropathy are present with mild bilateral neural foraminal stenosis. C6-C7: No significant disc pathology. The spinal canal is patent. Bilateral facet and uncovertebral joint arthropathy are present with mild bilateral neural foraminal stenosis. C7-T1: No significant disc pathology. The spinal canal is patent. Bilateral facet and uncovertebral joint arthropathy are present with mild bilateral neural foraminal stenosis. Other: None. IMPRESSION: 1. No evidence for disc herniation or significant spinal canal stenosis. 2. Post surgical changes with mild disc degeneration with associated osteoarthritic changes. [facility], , 12/23/2023 12:39 PM
== END | disposition home or self-care (01) ==
LOC: RADMRIMAIN 08:54
PROVIDERS: ATTEND Neurological Surgery
DX: M50.10 Cervical disc disorder with radiculopathy, unspecified cervical region (principal); M99.71 Connective tissue and disc stenosis of intervertebral foramina of cervical region; M47.12 Other spondylosis with myelopathy, cervical region
CPT/HCPCS: 72141

== ENCOUNTER → 2024-03-12 | Outpatient (CLI) | payer MEDICARE ==
--- NOTE | 2024-03-12 16:21 | MR ---
INDICATION: Patient age:Female; 68 years old; Reason for study: M48.062 SPINAL STENOSIS, LUMBAR REGION WITH NEUROG; [facility]. COMPARISONS: CT abdomen and pelvis 04/27/2018, MR C-spine/L spine 02/27/2016. TECHNIQUE: Multi planar, multi sequence imaging was performed utilizing: T1-weighted, T2-weighted, a nd turbo inversion recovery imaging of the lumbar spine. The patient was not given contrast. FINDINGS: The lumbar vertebral bodies do have preserved heights. Mild retrolisthesis of L5 and S1 wi thout evidence of pars defects. T1/T2 hyperintense vertebral hemangioma involving the L4 vertebral cruz dy. Multilevel disc desiccation is present. No abnormal STIR signal. The conus medullaris and the dis adan spinal cord do appear unremarkable with regards to their signal intensity and morphology. T12-L1: No significant disc degeneration or neural foraminal stenosis. L1-L2: Broad-based left paracentral disc protrusion with mild effacement of the intrathecal sac. Sig nificant central canal stenosis. Bilateral facet arthropathy. Severe left and [id number]-gq-srakoifj right neural foraminal stenosis.. L2-L3: Schmorl's node involving the superior endplate of the L3 vertebral body redemonstrated. Broad -based right paracentral lateral disc protrusion redemonstrated. There is mild effacement of the ante rior thecal sac. Ligament flavum buckling bilateral facet arthropathy. Mild central canal stenosis wi th moderate bilateral neural foraminal stenosis. L3-L4: Flattening of the posterior disc without significant central canal stenosis. Bilateral facet arthropathy without significant neural foraminal stenosis bilaterally. L4-L5: Broad-based disc bulge with ligament flavum buckling and bilateral facet arthropathy contribut e to mild central canal stenosis. [id number]-io-qyafkeio bilateral neural foramina stenosis. L5-S1: Central disc protrusion with mild effacement of anterior thecal sac. Mild central canal steno sis. Bilateral facet arthropathy. Moderate bilateral neural foraminal stenosis. Other significant findings: None. IMPRESSION: Overall similar [id number]-ht-bzutnmky multilevel degenerative disc disease and facet arthropathy from prio r MRI 02/27/2016 as described above. Similar multilevel disc protrusions. [facility], , 03/12/2024 4:18 PM
== END | disposition home or self-care (01) ==
LOC: RADMRIMAIN 13:28
PROVIDERS: ATTEND Neurological Surgery
DX: M48.062 Spinal stenosis, lumbar region with neurogenic claudication (principal); M47.816 Spondylosis without myelopathy or radiculopathy, lumbar region; M51.369 Other intervertebral disc degeneration, lumbar region without mention of lumbar back pain or lower extremity pain
CPT/HCPCS: 72148